=== PATIENT | male | born 1940 ===

== ENCOUNTER 2016-09-21 16:44 | Inpatient (IN) | payer MEDICARE, OTHER ==
[2016-09-26] MEDS: Insulin Lispro (humaLOG) 100 Units/ml Inj SC SCH (22:23)
[2016-09-27] MEDS: Pantoprazole 40 mg EC Tab PO SCH (06:52)
[2016-09-27] MEDS: Insulin Lispro (humaLOG) 100 Units/ml Inj SC SCH ×4 (06:53→21:00)
--- NOTE | 2016-09-27 08:06 | CP.PCM.CON ---
History of Present Illness - History of Present Illness History of Present Illness: 76 year old liberian male admitted for acute rehab with diagnosis of cerebrovascular accident from [facility]. Other diagnosis significant for Diabetes, HTN, Angina Review of Systems - Musculoskeletal Musculoskeletal: Muscle Weakness - Neurological Neurological: Weakness Past Patient History - Past Medical History & Family History Past Medical History?: Yes - Past Social History Smoking Status: Never Smoked - CARDIAC Hx Angina: Yes Hx Hypertension: Yes Other/Comment: (+) Loop recorder - NEUROLOGICAL Hx Paralysis: Yes - HEENT Hx Cataracts: Yes - ENDOCRINE/METABOLIC Hx Diabetes Mellitus Type 2: Yes - HEMATOLOGICAL/ONCOLOGICAL Hx AIDS: No Hx Human Immunodeficiency Virus (HIV): No - MUSCULOSKELETAL/RHEUMATOLOGICAL Hx Falls: Yes (Fell on 09/24/2016 @ [facility]) - PSYCHIATRIC Hx Substance Use: No - SURGICAL HISTORY Other/Comment: Cataract Sx 8 mos ago - ANESTHESIA Hx Anesthesia: Yes Hx Anesthesia Reactions: No Meds Allergies/Adverse Reactions: Allergies Allergy/AdvReac Type Severity Reaction Status Date / Time No Known Allergies Allergy Verified 09/26/16 19:05 - Medications Medications: Current Medications Acetaminophen (Tylenol 325mg Tab) 650 mg PO Q6 PRN PRN Reason: Headache Amlodipine Besylate (Norvasc) 5 mg PO DAILY [facility] Aspirin (Aspirin) 325 mg PO DAILY [facility] Atenolol (Tenormin) 50 mg PO Q12@0900,2100 [facility] Atorvastatin Calcium (Lipitor) 80 mg PO HS [facility] Last Admin: 09/26/16 22:22 Dose: 80 mg Insulin Human Lispro (Humalog) 0 units SC ACHS [facility] PRN Reason: Protocol Last Admin: 09/27/16 06:53 Dose: Not Given Lisinopril (Zestril) 20 mg PO DAILY [facility] Nitroglycerin (Nitrostat Sl Tab) 0.4 mg SL Q5M PRN PRN Reason: Other Pantoprazole Sodium (Protonix Ec Tab) 40 mg PO DAILY@0700 [facility] Last Admin: 09/27/16 06:52 Dose: 40 mg Physical Exam - Head Exam Head Exam: ATRAUMATIC, NORMAL INSPECTION, NORMOCEPHALIC - Eye Exam Eye Exam: EOMI, Normal appearance - ENT Exam ENT Exam: Mucous Membranes Moist, Normal Exam - Respiratory Exam Respiratory Exam: NORMAL BREATHING PATTERN - Cardiovascular Exam Cardiovascular Exam: REGULAR RHYTHM - GI/Abdominal Exam GI & Abdominal Exam: Normal Bowel Sounds - Exam External exam: NORMAL EXTERNAL EXAM - Back Exam Back exam: NORMAL INSPECTION Additional comments: left side weaker than right - Neurological Exam Neurological exam: Alert - Psychiatric Exam Psychiatric exam: Normal Affect, Normal Mood - Skin Skin Exam: Dry, Normal Color Results - Vital Signs Recent Vital Signs: Last Vital Signs Temp 97.5 F L 09/26/16 22:00 Pulse 61 09/27/16 00:40 Resp 20 09/27/16 00:40 BP 148/80 09/26/16 22:22 Pulse Ox 99 09/26/16 22:00 - Labs Labs: Laboratory Results - last 24 hr 09/26/16 09/27/16 22:21 06:14 POC Glucose (mg/dL) 105 121 H Assessment & Plan (1) Cerebrovascular accident Assessment and Plan: plan for physical, occupational, speech , recreational therapy program. Plan for Dc home Plan for ROM, strengthening, transfers and gait training. Goals for Modified [place] but depend on patient progress in rehabilitation. Other diagnosis of DM, HTN, Angina to follow with PMD and check labs. Status: Acute
--- NOTE | 2016-09-27 09:58 | CP.PCM.HP ---
History of Present Illness - History of Present Illness History of Present Illness: CC: Left sided Weakness and Left flank Pain History of present Illness: A 76yoM with H/O DMII, and HTN was in [facility] where he had stroke and was hospitalized for 4 days for Acute CVA 3weeks back . Then he went [facility] for Worsened Left sided weakness and slurred speech, and chest pain where he was found to have Acute CVA involving the avitia Radiata and Internal Capsule with weakness to the left side. While in the hospital, he was trying to come out of bed when he fell to the lefts side and injured the left Flank. All Imagings did not show any fracture as per the record and the patient. Currently still C/O Left sided weakness and left Flank pain 8-9/10 continuous and relieved by Tylenole. He passed Swallow evaluation done at [facility]. Present on Admission - Present on Admission Any Indicators Present on Admission: No History of DVT/PE: No History of Uncontrolled Diabetes: Yes Urinary Catheter: No Decubitus Ulcer Present: No Review of Systems - Review of Systems All systems: reviewed and no additional remarkable complaints except - Neurological Neurological: As Per HPI Past Patient History - Past Medical History & Family History Past Medical History?: Yes Past Family History: Reviewed and not pertinent - Past Social History Smoking Status: Never Smoked Alcohol: None Drugs: Denies - CARDIAC Hx Angina: Yes Hx Hypertension: Yes Other/Comment: (+) Loop recorder - NEUROLOGICAL Hx Paralysis: Yes - HEENT Hx Cataracts: Yes - ENDOCRINE/METABOLIC Hx Diabetes Mellitus Type 2: Yes - HEMATOLOGICAL/ONCOLOGICAL Hx AIDS: No Hx Human Immunodeficiency Virus (HIV): No - MUSCULOSKELETAL/RHEUMATOLOGICAL Hx Falls: Yes (Fell on 09/24/2016 @ [facility]) - PSYCHIATRIC Hx Substance Use: No - SURGICAL HISTORY Other/Comment: Cataract Sx 8 mos ago - ANESTHESIA Hx Anesthesia: Yes Hx Anesthesia Reactions: No Meds Allergies/Adverse Reactions: Allergies Allergy/AdvReac Type Severity Reaction Status Date / Time No Known Allergies Allergy Verified 09/26/16 19:05 Physical Exam - Constitutional Appears: Well, No Acute Distress - Head Exam Head Exam: ATRAUMATIC, NORMAL INSPECTION, NORMOCEPHALIC - Eye Exam Eye Exam: EOMI, Normal appearance, PERRL Pupil Exam: NORMAL ACCOMODATION, PERRL - ENT Exam ENT Exam: Mucous Membranes Moist, Normal Exam - Neck Exam Neck exam: Positive for: Full Rom, Normal Inspection - Respiratory Exam Respiratory Exam: Clear to Auscultation Bilateral, NORMAL BREATHING PATTERN - Cardiovascular Exam Cardiovascular Exam: REGULAR RHYTHM, +S1, +S2 - GI/Abdominal Exam GI & Abdominal Exam: Normal Bowel Sounds, Soft. absent: Tenderness - Extremities Exam Extremities exam: Positive for: full ROM, normal capillary refill, normal inspection - Back Exam Back exam: NORMAL INSPECTION. absent: CVA tenderness (L), CVA tenderness (R) - Neurological Exam Neurological exam: Alert, Motor Sensory Deficit, Oriented x3, Reflexes Normal - Psychiatric Exam Psychiatric exam: Normal Affect, Normal Mood - Skin Skin Exam: Dry, Intact, Normal Color, Warm Results - Vital Signs Recent Vital Signs: Last Vital Signs Temp 97.9 F 09/27/16 09:20 Pulse 60 09/27/16 09:20 Resp 19 09/27/16 09:20 BP 135/69 09/27/16 09:20 Pulse Ox 97 09/27/16 09:20 - Labs Result Diagrams: 10/05/16 12:05 10/05/16 12:05 Labs: Laboratory Results - last 24 hr 09/26/16 09/27/16 22:21 06:14 POC Glucose (mg/dL) 105 121 H - Imaging and Cardiology CT scan - head Status: Report reviewed by me Additional comment: Acute small infarct in the right 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 Assessment & Plan (1) Acute cerebrovascular accident (CVA) Assessment and Plan: Left sided Hemiplegia Fall, Left Flank Pain ASA/Lipitor Physiatry Consult Tylenol Fall Precaution Neurocheck Status: Acute Priority: High (2) Diabetes mellitus Assessment and Plan: with Novolog Coverage Status: Chronic Priority: Medium (3) Hypertension Assessment and Plan: Keep sbp about 50 and DB about 85 Status: Chronic Priority: Low (4) Fall Assessment and Plan: S/P Event Monitor insertion at [facility] Status: Acute
--- NOTE | 2016-09-27 10:44 | PN ---
DATE: 09/27/2016 OVERALL PLAN OF CARE The patient in room 627 at [facility]. The patient is a 76-year-old male admitted for acute cerebrovascular accident from Hospital. O ther medical history significant for hypertension, diabetes, angina. Estimated length of stay for th is patient is 2-3 weeks. Anticipated discharge plan is to go back to live at home with supportive se rvices. TREATMENT PLAN: The patient for physical therapy, occupational therapy, recreational therapy and spe ech therapy and case management. Plan for the patient is for range of motion, strengthening, transfe rs, ambulation, gait training, speech evaluation, cognitive evaluation. Goals for the patient to be independent in bed mobility, independence of supervision, functional positional changes, independence of supervision for simple transfers, supervision and contact guard for complex transfers, independen ce of supervision for ambulation with assistive devices, supervision and contact guard for elevation. Condition fair. DISCHARGE DISPOSITION: To be discharged home with supportive services. Clifford Gonsales MD cc: [id number] TT: 09/27/2016 10:43:50 Confirmation # [id number] Dictation # [id number] an
--- NOTE | 2016-09-27 13:20 | CP.PCM.CON ---
History of Present Illness - History of Present Illness History of Present Illness: I was asked to see patient by Dr. Woods. Patient is a 76 year old male with a history of HTN, hypercholesterolemia who presents for rehab. The patient presented to [facility] due and left sided weakness. The patietn has CV of the avitia radiata. He has normal cardiac care with Dr. Alexi Davis. The patient denies previous history of CAD or atrial fibrillation. Review of Systems - Constitutional Constitutional: absent: As Per HPI, Anorexia, Chills, Daytime Sleepiness, Excessive Sweating, Fatigue, Fever, Frequent Falls, Headache, Increased Appetite , Lethargy, Malaise, Night Sweats, Snoring, Sleep Apnea, Weight Gain, Weight Loss, Weakness, Other - EENT Eyes: absent: As Per HPI, Blind Spots, Blurred Vision, Change in Vision, Decreased Night Vision, Diplopia, Discharge, Dry Eye, Exophthalmos, Floaters, Irritation, Itchy Eyes, Loss of Peripheral Vision, Pain, Photophobia, Requires Corrective Lenses, Sees Flashes, Spots in Vision, Tunnel Vision, Other Visual Disturbances, Loss of Vision, Other Ears: absent: As Per HPI, Decreased Hearing, Ear Discharge, Ear Pain, Tinnitus, Abnormal Hearing, Disequilibrium, Dizziness, Other Nose/Mouth/Throat: absent: As Per HPI, Epistaxis, Nasal Congestion, Nasal Discharge, Nasal Obstruction, Nasal Trauma, Nose Pain, Post Nasal Drip, Sinus Pain, Sinus Pressure, Bleeding Gums, Change in Voice, Dental Pain, Dry Mouth, Dysphagia, Halitosis, Hoarsness, Lip Swelling, Mouth Lesions, Mouth Pain, Odynophagia, Sore Throat, Throat Swelling, Tongue Swelling, Facial Pain, Neck Pain, Neck Mass, Other - Cardiovascular Cardiovascular: absent: As Per HPI, Acrocyanosis, Chest Pain, Chest Pain at Rest , Chest Pain with Activity, Claudication, Diaphoresis, Dyspnea, Dyspnea on Exertion, Edema, Irregular Heart Rhythm, Pain Radiating to Arm/Neck/Jaw, Leg Edema, Leg Ulcers, Lightheadedness, Orthopnea, Palpitations, Paroxysmal Nocturnal Dyspnea, Pedal Edema, Radiating Pain, Rapid Heart Rate, Slow Heart Rate, Syncope, Other - Respiratory Respiratory: absent: As Per HPI, Cough, Dyspnea, Hemoptysis, Dyspnea on Exertion , Wheezing, Snoring, Stridor, Pain on Inspiration, Chest Congestion, Excessive Mucous Production, Change in Mucous Color, Pain with Coughing, Other - Gastrointestinal Gastrointestinal: absent: As Per HPI, Abdominal Pain, Belching, Bloating, Change in Bowel Habits, Change in Stool Character, Coffee Ground Emesis, Constipation, Cramping, Diarrhea, Dyspepsia, Dysphagia, Early Satiety, Excessive Flatus, Fecal Incontinence, Heartburn, Hematemesis, Hematochezia, Loose Stools, Melena, Nausea, Odynophagia, Temesmus, Vomiting, Other - Genitourinary Genitourinary: absent: As Per HPI, Change in Urinary Stream, Difficulty Urinating, Dysuria, Flank Pain, Hematuria, Pyuria, Nocturia, Urinary Incontinence, Urinary Frequency, Urinary Hesitance, Urinary Urgency, Voiding Freq/Small Amts, Freq UTI, Hx Renal/Bladder Calculi, Hx /Renal Surgery, Bladder Distension, Other - Musculoskeletal Musculoskeletal: absent: As Per HPI, Abnormal Gait, Arthralgias, Atrophy, Back Pain, Deformity, Joint Swelling, Limited Range of Motion, Loss of Height, Muscle Cramps, Muscle Weakness, Myalgias, Neck Pain, Numbness, Radiating Pain into Limb, Stiffness, Tingling, Other - Integumentary Integumentary: absent: As Per HPI, Acne, Alopecia, Bleeding Lesions, Change in Hair, Change in Nails, Change in Pigmentation, Changing Lesions, Dry Skin, Erythema, Furuncle, Hirsutism, Lesions, New Lesions, Non-Healing Lesions, Photosensitivity, Pruritus, Rash, Skin Pain, Skin Ulcer, Sores, Striae, Swelling , Unusual Bruising, Wounds, Jaundice, Other - Neurological Neurological: Weakness - Psychiatric Psychiatric: absent: As Per HPI, Abnormal Sleep Pattern, Anhedonia, Anxiety, Auditory Hallucinations, Behavioral Changes, Change in Appetite, Change in Libido, Confusion, Depression, Difficulty Concentrating, Hallucinations, Homicidal Ideation, Hopelessness, Irritability, Memory Loss, Mood Swings, Panic Attacks, Paranoia, Suicidal Ideation, Visual Hallucinations, Tactile Hallucinations, Other - Endocrine Endocrine: absent: As Per HPI, Change in Body Appearance, Change in Libido, Cold Intolorance, Deepening of Voice, Excessive Sweating, Fatigue, Flushing, Heat Intolorance, Increase in Ring/Shoe/Hat Size, Palpitations, Polydipsia, Polyphagia, Polyuria, Other - Hematologic/Lymphatic Hematologic: absent: As Per HPI, Easy Bleeding, Easy Bruising, Lymphadenopathy, Other Past Patient History - Past Medical History & Family History Past Medical History?: Yes Past Family History: Reviewed and not pertinent - Past Social History Smoking Status: Never Smoked Alcohol: None Drugs: Denies - CARDIAC Hx Angina: Yes Hx Hypertension: Yes Other/Comment: (+) Loop recorder - NEUROLOGICAL Hx Paralysis: Yes - HEENT Hx Cataracts: Yes - ENDOCRINE/METABOLIC Hx Diabetes Mellitus Type 2: Yes - HEMATOLOGICAL/ONCOLOGICAL Hx AIDS: No Hx Human Immunodeficiency Virus (HIV): No - MUSCULOSKELETAL/RHEUMATOLOGICAL Hx Falls: Yes (Fell on 09/24/2016 @ [facility]) - PSYCHIATRIC Hx Substance Use: No - SURGICAL HISTORY Other/Comment: Cataract Sx 8 mos ago - ANESTHESIA Hx Anesthesia: Yes Hx Anesthesia Reactions: No Meds Allergies/Adverse Reactions: Allergies Allergy/AdvReac Type Severity Reaction Status Date / Time No Known Allergies Allergy Verified 09/26/16 19:05 - Medications Medications: Current Medications Acetaminophen (Tylenol 325mg Tab) 650 mg PO Q6 PRN PRN Reason: Headache Last Admin: 09/27/16 09:19 Dose: 650 mg Acetaminophen (Tylenol 325mg Tab) 650 mg PO Q6 PRN PRN Reason: Pain scale 4-10 Amlodipine Besylate (Norvasc) 5 mg PO DAILY [facility] Last Admin: 09/27/16 09:17 Dose: Not Given Aspirin (Aspirin) 325 mg PO DAILY [facility] Last Admin: 09/27/16 09:16 Dose: 325 mg Atenolol (Tenormin) 50 mg PO Q12@0900,2100 [facility] Last Admin: 09/27/16 09:18 Dose: Not Given Atorvastatin Calcium (Lipitor) 80 mg PO HS [facility] Last Admin: 09/26/16 22:22 Dose: 80 mg Insulin Human Lispro (Humalog) 0 units SC ACHS [facility] PRN Reason: Protocol Last Admin: 09/27/16 12:11 Dose: Not Given Lisinopril (Zestril) 20 mg PO DAILY [facility] Last Admin: 09/27/16 09:18 Dose: Not Given Nitroglycerin (Nitrostat Sl Tab) 0.4 mg SL Q5M PRN PRN Reason: Other Pantoprazole Sodium (Protonix Ec Tab) 40 mg PO DAILY@0700 [facility] Last Admin: 09/27/16 06:52 Dose: 40 mg Physical Exam - Constitutional Appears: Non-toxic - Head Exam Head Exam: NORMAL INSPECTION - Eye Exam Eye Exam: Normal appearance - ENT Exam ENT Exam: Mucous Membranes Moist - Neck Exam Neck exam: Positive for: Full Rom - Respiratory Exam Respiratory Exam: NORMAL BREATHING PATTERN - Cardiovascular Exam Cardiovascular Exam: REGULAR RHYTHM - GI/Abdominal Exam GI & Abdominal Exam: Normal Bowel Sounds - Rectal Exam Rectal Exam: Deferred - Extremities Exam Extremities exam: Negative for: pedal edema - Back Exam Back exam: NORMAL INSPECTION - Neurological Exam Additional comments: left sided weakness - Psychiatric Exam Psychiatric exam: Normal Affect - Skin Skin Exam: Normal Color Results - Vital Signs Recent Vital Signs: Last Vital Signs Temp 97.9 F 09/27/16 09:20 Pulse 60 09/27/16 09:20 Resp 19 09/27/16 09:20 BP 135/69 09/27/16 09:20 Pulse Ox 97 09/27/16 09:20 - Labs Labs: Laboratory Results - last 24 hr 09/26/16 09/27/16 09/27/16 22:21 06:14 12:05 POC Glucose (mg/dL) 105 121 H 128 H Assessment & Plan (1) Cerebrovascular accident Assessment and Plan: continue rehab. needs antiplatelet therapy Status: Acute (2) Diabetes mellitus Assessment and Plan: risk factors for CVA Status: Chronic Priority: Medium (3) Hypertension Assessment and Plan: blood pressure control Status: Chronic Priority: Low (4) Hypercholesterolemia Assessment and Plan: statin therapy Status: Acute
[2016-09-28] MEDS ORDERED: guaiFENesin 100 mg/5 ml Syrup UD PO ONE (01:44)
[2016-09-28] MEDS: Insulin Lispro (humaLOG) 100 Units/ml Inj SC SCH ×4 (06:30→21:05)
[2016-09-28] MEDS: Pantoprazole 40 mg EC Tab PO SCH (06:56)
[2016-09-28] MEDS ORDERED: guaiFENesin 100 mg/5 ml Syrup UD PO PRN (12:40)
--- NOTE | 2016-09-28 15:13 | CP.PCM.CON ---
History of Present Illness - History of Present Illness History of Present Illness: PODIATRY PROGRESS NOTE DR. GOMEZ 76 yo male patient w/ pmh DMII, HTN, angina seen at bedside in rehab today following request for podiatry consult. Of note patient is here for acute rehab following recent CVA from [place]. Pt says he has weakness to the left side, unable to walk at this time. Says his toenails are elongated and need to be cut. Denies any other pedal complaints. Review of Systems - Review of Systems Review of Systems: All systems reviewed and found to be negative except HPI findings above Past Patient History - Past Medical History & Family History Past Medical History?: Yes Past Family History: Reviewed and not pertinent - Past Social History Smoking Status: Never Smoked Alcohol: None Drugs: Denies - CARDIAC Hx Hypertension: Yes - NEUROLOGICAL Hx Paralysis: Yes - HEENT Hx Cataracts: Yes - ENDOCRINE/METABOLIC Hx Diabetes Mellitus Type 2: Yes - HEMATOLOGICAL/ONCOLOGICAL Hx AIDS: No Hx Human Immunodeficiency Virus (HIV): No - MUSCULOSKELETAL/RHEUMATOLOGICAL Hx Falls: Yes (Fell on 09/24/2016 @ [facility]) - PSYCHIATRIC Hx Substance Use: No - SURGICAL HISTORY Other/Comment: Cataract Sx 8 mos ago - ANESTHESIA Hx Anesthesia: Yes Hx Anesthesia Reactions: No Meds Allergies/Adverse Reactions: Allergies Allergy/AdvReac Type Severity Reaction Status Date / Time No Known Allergies Allergy Verified 09/26/16 19:05 - Medications Medications: Current Medications Acetaminophen (Tylenol 325mg Tab) 650 mg PO Q6 PRN PRN Reason: Headache Last Admin: 09/27/16 09:19 Dose: 650 mg Acetaminophen (Tylenol 325mg Tab) 650 mg PO Q6 PRN PRN Reason: Pain scale 4-10 Last Admin: 09/27/16 21:24 Dose: 650 mg Amlodipine Besylate (Norvasc) 5 mg PO DAILY [facility] Last Admin: 09/28/16 08:55 Dose: Not Given Aspirin (Aspirin) 325 mg PO DAILY [facility] Last Admin: 09/28/16 08:55 Dose: 325 mg Atenolol (Tenormin) 50 mg PO Q12@0900,2100 [facility] Last Admin: 09/28/16 08:56 Dose: Not Given Atorvastatin Calcium (Lipitor) 80 mg PO HS [facility] Last Admin: 09/27/16 21:15 Dose: 80 mg Docusate Sodium (Colace) 100 mg PO BID [facility] Guaifenesin (Robitussin) 100 mg PO Q4 PRN PRN Reason: Cough Insulin Human Lispro (Humalog) 0 units SC ACHS [facility] PRN Reason: Protocol Last Admin: 09/28/16 12:18 Dose: 3 unit Lisinopril (Zestril) 20 mg PO DAILY [facility] Last Admin: 09/28/16 08:56 Dose: Not Given Nitroglycerin (Nitrostat Sl Tab) 0.4 mg SL Q5M PRN PRN Reason: Other Pantoprazole Sodium (Protonix Ec Tab) 40 mg PO DAILY@0700 [facility] Last Admin: 09/28/16 06:56 Dose: 40 mg Physical Exam - Constitutional Appears: Non-toxic, No Acute Distress - Extremities Exam Extremities exam: Negative for: calf tenderness Additional comments: Bilateral lower ext. exam: VASC- DP/PT pulses palpable bl, skin temp runs warm to cool bl, cap refill < 3 sec to digits x 10, no pedal edema NEURO- gross pedal sensation is intact DERM- nails slightly elongated x 10, no subungual debris, no open wounds, no interdigital macerations ORTHO- pedal muscle strength 5/5 right, 2/5 on left, no tenderness to palpation of feet - Neurological Exam Neurological exam: Alert, CN II-XII Intact, Oriented x3 - Psychiatric Exam Psychiatric exam: Normal Affect, Normal Mood Results - Vital Signs Recent Vital Signs: Last Vital Signs Temp 97.3 F L 09/28/16 07:24 Pulse 56 L 09/28/16 08:56 Resp 18 09/28/16 07:24 BP 146/74 09/28/16 08:56 Pulse Ox 99 09/28/16 07:24 - Labs Labs: Laboratory Results - last 24 hr 09/27/16 09/27/16 09/28/16 16:37 20:40 05:31 POC Glucose (mg/dL) 148 H 140 H 128 H 09/28/16 11:10 POC Glucose (mg/dL) 267 H Assessment & Plan - Assessment and Plan (Free Text) Assessment: 76 yo male patient w/ pmh DM, HTN, hypercholesterolemia, recent CVA seen for diabetic foot eval/elongated nails Plan: -Pt S&E at bedside in rehab -Plan discussed w/ attending Dr. Gomez -Chart, labs vitals reviewed -Nails aseptically debrided x 10 w/ sterile nail nipper. Pt tolerated procedure well w/o incident -Educated pt on proper diabetic foot care. -Stable per podiatry. -Podiatry to sing off. Reconsult as needed
--- NOTE | 2016-09-28 23:21 | CP.PCM.CON ---
History of Present Illness - History of Present Illness History of Present Illness: CC: Left sided Weakness and Left flank Pain History of present Illness: A 76yoM with H/O DMII, and HTN was in [facility] where he had stroke and was hospitalized for 4 days for Acute CVA 3weeks back . Then he went pallisade for Worsened Left sided weakness and slurred speech, and chest pain where he was found to have Acute CVA involving the avitia Radiata and Internal Capsule with weakness to the left side. While in the hospital, he was trying to come out of bed when he fell to the lefts side and injured the left Flank. All Imagings did not show any fracture as per the record and the patient. Currently still C/O Left sided weakness and left Flank pain 8-9/10 continuous and relieved by Tylenole. He passed Sw[place] Present on Admission - Present on Admission Any Indicators Present on Admission: No History of DVT/PE: No History of Uncontrolled Diabetes: Yes Urinary Catheter: No Decubitus Ulcer Present: No Review of Systems - Review of Systems All systems: reviewed and no additional remarkable complaints except - Neurological Neurological: As Per HPI Past Patient History - Past Medical History & Family History Past Medical History?: Yes Past Family History: Reviewed and not pertinent - Past Social History Smoking Status: Never Smoked Alcohol: None Drugs: Denies - CARDIAC Hx Angina: Yes Hx Hypertension: Yes Other/Comment: (+) Loop recorder - NEUROLOGICAL Hx Paralysis: Yes - HEENT Hx Cataracts: Yes - ENDOCRINE/METABOLIC Hx Diabetes Mellitus Type 2: Yes - HEMATOLOGICAL/ONCOLOGICAL Hx AIDS: No Hx Human Immunodeficiency Virus (HIV): No - MUSCULOSKELETAL/RHEUMATOLOGICAL Hx Falls: Yes (Fell on 09/24/2016 @ [facility]) - PSYCHIATRIC Hx Substance Use: No - SURGICAL HISTORY Other/Comment: Cataract Sx 8 mos ago - ANESTHESIA Hx Anesthesia: Yes Hx Anesthesia Reactions: No Meds Allergies/Adverse Reactions: Allergies Allergy/AdvReac Type Severity Reaction Status Date / Time No Known Allergies Allergy Verified 09/26/16 19:05 Physical Exam - Constitutional Appears: Well, No Acute Distress - Head Exam Head Exam: ATRAUMATIC, NORMAL INSPECTION, NORMOCEPHALIC - Eye Exam Eye Exam: EOMI, Normal appearance, PERRL Pupil Exam: NORMAL ACCOMODATION, PERRL - ENT Exam ENT Exam: Mucous Membranes Moist, Normal Exam - Neck Exam Neck exam: Positive for: Full Rom, Normal Inspection - Respiratory Exam Respiratory Exam: Clear to Auscultation Bilateral, NORMAL BREATHING PATTERN - Cardiovascular Exam Cardiovascular Exam: REGULAR RHYTHM, +S1, +S2 - GI/Abdominal Exam GI & Abdominal Exam: Normal Bowel Sounds, Soft. absent: Tenderness - Extremities Exam Extremities exam: Positive for: full ROM, normal capillary refill, normal inspection - Back Exam Back exam: NORMAL INSPECTION. absent: CVA tenderness (L), CVA tenderness (R) - Neurological Exam Neurological exam: Alert, Motor Sensory Deficit, Oriented x3, Reflexes Normal - Psychiatric Exam Psychiatric exam: Normal Affect, Normal Mood - Skin Skin Exam: Dry, Intact, Normal Color, Warm Results - Vital Signs Recent Vital Signs: Last Vital Signs Temp 97.9 F 09/27/16 09:20 Pulse 60 09/27/16 09:20 Resp 19 09/27/16 09:20 BP 135/69 09/27/16 09:20 Pulse Ox 97 09/27/16 09:20 - Labs Labs: Laboratory Results - last 24 hr 09/26/16 09/27/16 22:21 06:14 POC Glucose (mg/dL) 105 121 H - Imaging and Cardiology CT scan - head Status: Report reviewed by me Additional comment: Acute small infarct in the right 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 Assessment & Plan (1) Acute cerebrovascular accident (CVA) Assessment and Plan: Left sided Hemiplegia Fall, Left Flank Pain ASA/Lipitor Physiatry Consult Tylenol Fall Precaution Neurocheck Status: Acute Priority: High (2) Diabetes mellitus Assessment and Plan: with Novolog Coverage Status: Chronic Priority: Medium (3) Hypertension Assessment and Plan: Keep sbp about 50 and DB about 85 Status: Chronic Priority: Low (4) Fall Status: Acute Past Patient History - Past Medical History & Family History Past Medical History?: Yes Past Family History: Reviewed and not pertinent - Past Social History Smoking Status: Never Smoked Alcohol: None Drugs: Denies - CARDIAC Hx Hypertension: Yes - NEUROLOGICAL Hx Paralysis: Yes - HEENT Hx Cataracts: Yes - ENDOCRINE/METABOLIC Hx Diabetes Mellitus Type 2: Yes - HEMATOLOGICAL/ONCOLOGICAL Hx AIDS: No Hx Human Immunodeficiency Virus (HIV): No - MUSCULOSKELETAL/RHEUMATOLOGICAL Hx Falls: Yes (Fell on 09/24/2016 @ [facility]) - PSYCHIATRIC Hx Substance Use: No - SURGICAL HISTORY Other/Comment: Cataract Sx 8 mos ago - ANESTHESIA Hx Anesthesia: Yes Hx Anesthesia Reactions: No Meds Allergies/Adverse Reactions: Allergies Allergy/AdvReac Type Severity Reaction Status Date / Time No Known Allergies Allergy Verified 09/26/16 19:05 - Medications Medications: Current Medications Acetaminophen (Tylenol 325mg Tab) 650 mg PO Q6 PRN PRN Reason: Headache Last Admin: 09/27/16 09:19 Dose: 650 mg Acetaminophen (Tylenol 325mg Tab) 650 mg PO Q6 PRN PRN Reason: Pain scale 4-10 Last Admin: 09/27/16 21:24 Dose: 650 mg Amlodipine Besylate (Norvasc) 5 mg PO DAILY [facility] Last Admin: 09/28/16 08:55 Dose: Not Given Aspirin (Aspirin) 325 mg PO DAILY [facility] Last Admin: 09/28/16 08:55 Dose: 325 mg Atenolol (Tenormin) 50 mg PO Q12@0900,2100 [facility] Last Admin: 09/28/16 20:28 Dose: 50 mg Atorvastatin Calcium (Lipitor) 80 mg PO HS [facility] Last Admin: 09/28/16 21:08 Dose: 80 mg Docusate Sodium (Colace) 100 mg PO BID [facility] Last Admin: 09/28/16 17:16 Dose: 100 mg Guaifenesin (Robitussin) 100 mg PO Q4 PRN PRN Reason: Cough Last Admin: 09/28/16 20:29 Dose: 100 mg Insulin Human Lispro (Humalog) [address] [facility] PRN Reason: Protocol Last Admin: 09/28/16 21:05 Dose: Not Given Lisinopril (Zestril) 20 mg PO DAILY [facility] Last Admin: 09/28/16 08:56 Dose: Not Given Nitroglycerin (Nitrostat Sl Tab) 0.4 mg SL Q5M PRN PRN Reason: Other Pantoprazole Sodium (Protonix Ec Tab) 40 mg PO DAILY@0700 [facility] Last Admin: 09/28/16 06:56 Dose: 40 mg Physical Exam - Neurological Exam Additional comments: Mental Status: Awake, Alert, Oriented X 3 Dysarthric, non fluent non coherent Normal memory X 3 Cranial Nerves II to XII: Central Tongue Normal EOM Normal Swallowing Motor: Left Hemiplegia, spastic Tone on the Left UE , mild LE Weakness of the Left UE and mild weakness of Left LE DTR 0/4 Toes down going on the Right and Up Going on the Left. Sensory: Glove and Stoke sensory Deficit peripherally More Reduced sensation on the Left side Cerebellar: Normal FNT on the Right. Results - Vital Signs Recent Vital Signs: Last Vital Signs Temp 97.7 F 09/28/16 20:37 Pulse 64 09/28/16 20:37 Resp 20 09/28/16 20:37 BP 162/78 H 09/28/16 20:37 Pulse Ox 99 09/28/16 20:37 - Labs Labs: Laboratory Results - last 24 hr 09/28/16 09/28/16 09/28/16 05:31 11:10 15:57 POC Glucose (mg/dL) 128 H 267 H 200 H 09/28/16 21:04 POC Glucose (mg/dL) 136 H Assessment & Plan (1) Acute cerebrovascular accident (CVA) Status: Acute Priority: High (2) Cerebrovascular accident Status: Acute (3) Fall Status: Acute (4) Hypercholesterolemia Status: Acute (5) Diabetes mellitus Status: Chronic Priority: Medium (6) Hypertension Status: Chronic Priority: Low (7) Seizures Assessment and Plan: due to his falling, seizures is to be ruled out by EEG Status: Acute
--- NOTE | 2016-09-28 23:24 | CP.PCM.PN ---
Subjective - Date & Time of Evaluation Date of Evaluation: 09/28/16 Time of Evaluation: 15:15 - Subjective Subjective: Seen and Examined at the bed side. Left shoulder pain. Left sided weakness. Objective - Vital Signs/Intake and Output Vital Signs (last 24 hours): Temp Pulse Resp BP Pulse Ox 97.7 F 64 20 162/78 H 99 09/28/16 20:37 09/28/16 20:37 09/28/16 20:37 09/28/16 20:37 09/28/16 20:37 - Medications Medications: Current Medications Acetaminophen (Tylenol 325mg Tab) 650 mg PO Q6 PRN PRN Reason: Headache Last Admin: 09/27/16 09:19 Dose: 650 mg Acetaminophen (Tylenol 325mg Tab) 650 mg PO Q6 PRN PRN Reason: Pain scale 4-10 Last Admin: 09/27/16 21:24 Dose: 650 mg Amlodipine Besylate (Norvasc) 5 mg PO DAILY [facility] Last Admin: 09/28/16 08:55 Dose: Not Given Aspirin (Aspirin) 325 mg PO DAILY [facility] Last Admin: 09/28/16 08:55 Dose: 325 mg Atenolol (Tenormin) 50 mg PO Q12@0900,2100 [facility] Last Admin: 09/28/16 20:28 Dose: 50 mg Atorvastatin Calcium (Lipitor) 80 mg PO HS [facility] Last Admin: 09/28/16 21:08 Dose: 80 mg Docusate Sodium (Colace) 100 mg PO BID [facility] Last Admin: 09/28/16 17:16 Dose: 100 mg Guaifenesin (Robitussin) 100 mg PO Q4 PRN PRN Reason: Cough Last Admin: 09/28/16 20:29 Dose: 100 mg Insulin Human Lispro (Humalog) 0 units SC ACHS [facility] PRN Reason: Protocol Last Admin: 09/28/16 21:05 Dose: Not Given Lisinopril (Zestril) 20 mg PO DAILY [facility] Last Admin: 09/28/16 08:56 Dose: Not Given Nitroglycerin (Nitrostat Sl Tab) 0.4 mg SL Q5M PRN PRN Reason: Other Pantoprazole Sodium (Protonix Ec Tab) 40 mg PO DAILY@0700 [facility] Last Admin: 09/28/16 06:56 Dose: 40 mg - Constitutional Appears: Well, No Acute Distress - Head Exam Head Exam: ATRAUMATIC, NORMAL INSPECTION, NORMOCEPHALIC - Eye Exam Eye Exam: EOMI, Normal appearance, PERRL Pupil Exam: NORMAL ACCOMODATION, PERRL - ENT Exam ENT Exam: Mucous Membranes Moist, Normal Exam - Neck Exam Neck Exam: Full ROM, Normal Inspection. absent: Lymphadenopathy - Respiratory Exam Respiratory Exam: Clear to Ausculation Bilateral, NORMAL BREATHING PATTERN - Cardiovascular Exam Cardiovascular Exam: REGULAR RHYTHM, +S1, +S2. absent: Murmur - GI/Abdominal Exam GI & Abdominal Exam: Soft, Normal Bowel Sounds. absent: Tenderness - Extremities Exam Extremities Exam: Full ROM, Normal Capillary Refill, Tenderness. absent: Joint Swelling, Pedal Edema Additional comments: Left Shoulder Tenderness - Back Exam Back Exam: NORMAL INSPECTION - Neurological Exam Neurological Exam: Abnormal Gait, Alert, Awake, CN II-XII Intact, Oriented x3 Neuro motor strength exam: Left Upper Extremity: 2/1, Right Upper Extremity: 5, Left Lower Extremity: 2/1, Right Lower Extremity: 5 - Psychiatric Exam Psychiatric exam: Normal Affect, Normal Mood - Skin Skin Exam: Dry, Intact, Normal Color, Warm Assessment and Plan (1) Acute cerebrovascular accident (CVA) Assessment & Plan: Left sided Hemiplegia Fall, Left Flank Pain ASA/Lipitor Physiatry Consult Tylenol Fall Precaution Neurocheck Status: Acute Priority: High (2) Diabetes mellitus Assessment and Plan: SS with Novolog Coverage Status: Chronic Priority: Medium (3) Hypertension Assessment and Plan: Keep sbp about 50 and DB about 85 Status: Chronic Priority: Low (4) Fall Assessment and Plan: S/P Event Monitor insertion at [facility] Status: Acute
[2016-09-29] MEDS: Pantoprazole 40 mg EC Tab PO SCH (06:00)
[2016-09-29] MEDS: Insulin Lispro (humaLOG) 100 Units/ml Inj SC SCH ×4 (07:30→21:41)
--- NOTE | 2016-09-29 09:13 | RAD ---
PROCEDURE: Radiographs of the Left Shoulder HISTORY: left shoulder pain COMPARISON: No prior. FINDINGS: BONES: Normal. No fracture. JOINTS: Normal. Glenohumeral and acromioclavicular joints preserved. No osteoarthritis. SOFT TISSUES: Normal. OTHER FINDINGS: None. IMPRESSION: No evidence of acute fracture or dislocation.
--- NOTE | 2016-09-29 10:39 | CP.PCM.PN ---
Subjective - Date & Time of Evaluation Date of Evaluation: 09/29/16 Time of Evaluation: 10:50 - Subjective Subjective: Seen and Examined at the bed side.No New Complaint. Objective - Vital Signs/Intake and Output Vital Signs (last 24 hours): Temp Pulse Resp BP Pulse Ox 97.0 F L 59 L 19 112/55 L 99 09/29/16 08:56 09/29/16 08:56 09/29/16 08:56 09/29/16 08:56 09/29/16 08:56 - Medications Medications: Current Medications Acetaminophen (Tylenol 325mg Tab) 650 mg PO Q6 PRN PRN Reason: Headache Last Admin: 09/27/16 09:19 Dose: 650 mg Acetaminophen (Tylenol 325mg Tab) 650 mg PO Q6 PRN PRN Reason: Pain scale 4-10 Last Admin: 09/27/16 21:24 Dose: 650 mg Amlodipine Besylate (Norvasc) 5 mg PO DAILY [facility] Last Admin: 09/29/16 08:50 Dose: Not Given Aspirin (Aspirin) 325 mg PO DAILY [facility] Last Admin: 09/29/16 08:49 Dose: 325 mg Atenolol (Tenormin) 50 mg PO Q12@0900,2100 [facility] Last Admin: 09/29/16 08:50 Dose: Not Given Atorvastatin Calcium (Lipitor) 80 mg PO HS [facility] Last Admin: 09/28/16 21:08 Dose: 80 mg Docusate Sodium (Colace) 100 mg PO BID [facility] Last Admin: 09/29/16 08:49 Dose: 100 mg Guaifenesin (Robitussin) 100 mg PO Q4 PRN PRN Reason: Cough Last Admin: 09/28/16 20:29 Dose: 100 mg Insulin Human Lispro (Humalog) 0 units SC ACHS [facility] PRN Reason: Protocol Last Admin: 09/29/16 07:30 Dose: Not Given Lisinopril (Zestril) 20 mg PO DAILY [facility] Last Admin: 09/29/16 08:50 Dose: Not Given Nitroglycerin (Nitrostat Sl Tab) 0.4 mg SL Q5M PRN PRN Reason: Other Pantoprazole Sodium (Protonix Ec Tab) 40 mg PO DAILY@0700 [facility] Last Admin: 09/29/16 06:00 Dose: 40 mg - Constitutional Appears: Well, No Acute Distress - Head Exam Head Exam: ATRAUMATIC, NORMAL INSPECTION, NORMOCEPHALIC - Eye Exam Eye Exam: EOMI, Normal appearance, PERRL Pupil Exam: NORMAL ACCOMODATION, PERRL - ENT Exam ENT Exam: Mucous Membranes Moist, Normal Exam - Neck Exam Neck Exam: Full ROM, Normal Inspection. absent: Lymphadenopathy - Respiratory Exam Respiratory Exam: Clear to Ausculation Bilateral, NORMAL BREATHING PATTERN - Cardiovascular Exam Cardiovascular Exam: REGULAR RHYTHM, +S1, +S2. absent: Murmur - GI/Abdominal Exam GI & Abdominal Exam: Soft, Normal Bowel Sounds. absent: Tenderness - Extremities Exam Extremities Exam: Full ROM, Normal Capillary Refill, Normal Inspection. absent : Joint Swelling, Pedal Edema - Back Exam Back Exam: NORMAL INSPECTION - Neurological Exam Neurological Exam: Alert, Awake, CN II-XII Intact, Normal Gait, Oriented x3 Neuro motor strength exam: Left Upper Extremity: 3, Left Lower Extremity: 3 - Psychiatric Exam Psychiatric exam: Normal Affect, Normal Mood - Skin Skin Exam: Dry, Intact, Normal Color, Warm Assessment and Plan (1) Acute cerebrovascular accident (CVA) Assessment & Plan: Left sided Hemiplegia Fall, Left Flank Pain ASA/Lipitor Physiatry onboard Tylenol Fall Precaution Neurocheck Status: Acute Priority: High (2) Diabetes mellitus Assessment and Plan: SS with Novolog Coverage Status: Chronic Priority: Medium (3) Hypertension Assessment and Plan: Keep sbp about 150 and DB about 85 Status: Chronic Priority: Low (4) Fall Assessment and Plan: S/P Event Monitor insertion at [facility] Status: Acute
--- NOTE | 2016-09-29 13:58 | CP.PCM.PN ---
Subjective - Date & Time of Evaluation Date of Evaluation: 09/29/16 Time of Evaluation: 12:00 - Subjective Subjective: patinet with mild left sided weakness Objective - Vital Signs/Intake and Output Vital Signs (last 24 hours): Temp Pulse Resp BP Pulse Ox 97.0 F L 59 L 19 112/55 L 99 09/29/16 08:56 09/29/16 08:56 09/29/16 08:56 09/29/16 08:56 09/29/16 08:56 - Medications Medications: Current Medications Acetaminophen (Tylenol 325mg Tab) 650 mg PO Q6 PRN PRN Reason: Headache Last Admin: 09/27/16 09:19 Dose: 650 mg Acetaminophen (Tylenol 325mg Tab) 650 mg PO Q6 PRN PRN Reason: Pain scale 4-10 Last Admin: 09/27/16 21:24 Dose: 650 mg Amlodipine Besylate (Norvasc) 5 mg PO DAILY [facility] Last Admin: 09/29/16 08:50 Dose: Not Given Aspirin (Aspirin) 325 mg PO DAILY [facility] Last Admin: 09/29/16 08:49 Dose: 325 mg Atenolol (Tenormin) 50 mg PO Q12@0900,2100 [facility] Last Admin: 09/29/16 08:50 Dose: Not Given Atorvastatin Calcium (Lipitor) 80 mg PO HS [facility] Last Admin: 09/28/16 21:08 Dose: 80 mg Docusate Sodium (Colace) 100 mg PO BID [facility] Last Admin: 09/29/16 08:49 Dose: 100 mg Guaifenesin (Robitussin) 100 mg PO Q4 PRN PRN Reason: Cough Last Admin: 09/28/16 20:29 Dose: 100 mg Insulin Human Lispro (Humalog) 0 units SC [facility] PRN Reason: Protocol Last Admin: 09/29/16 12:25 Dose: 1 unit Lisinopril (Zestril) 20 mg PO DAILY [facility] Last Admin: 09/29/16 08:50 Dose: Not Given Nitroglycerin (Nitrostat Sl Tab) 0.4 mg SL Q5M PRN PRN Reason: Other Pantoprazole Sodium (Protonix Ec Tab) 40 mg PO DAILY@0700 [facility] Last Admin: 09/29/16 06:00 Dose: 40 mg - Head Exam Head Exam: ATRAUMATIC, NORMAL INSPECTION, NORMOCEPHALIC - Eye Exam Eye Exam: EOMI, Normal appearance, PERRL Pupil Exam: NORMAL ACCOMODATION - ENT Exam ENT Exam: Mucous Membranes Moist, Normal Exam - Respiratory Exam Respiratory Exam: NORMAL BREATHING PATTERN - Cardiovascular Exam Cardiovascular Exam: REGULAR RHYTHM - GI/Abdominal Exam GI & Abdominal Exam: Normal Bowel Sounds - Rectal Exam Rectal Exam: Black Stool - Exam External exam: NORMAL EXTERNAL EXAM - Extremities Exam Extremities Exam: Normal Capillary Refill - Back Exam Back Exam: NORMAL INSPECTION - Neurological Exam Neurological Exam: Alert, Awake Neuro motor strength exam: Left Upper Extremity: 2/1, Right Upper Extremity: 3, Left Lower Extremity: 2/1, Right Lower Extremity: 3 - Psychiatric Exam Psychiatric exam: Normal Affect, Normal Mood - Skin Skin Exam: Dry, Intact, Normal Color Assessment and Plan (1) Cerebrovascular accident Assessment & Plan: plan for physical, occupational, rec and speech therapy team conference for am Status: Acute
[2016-09-30] MEDS: Pantoprazole 40 mg EC Tab PO SCH (06:27)
[2016-09-30] MEDS: Insulin Lispro (humaLOG) 100 Units/ml Inj SC SCH ×4 (06:38→21:43)
--- NOTE | 2016-09-30 10:55 | CP.PCM.PN ---
Subjective - Date & Time of Evaluation Date of Evaluation: 09/30/16 Time of Evaluation: 09:50 - Subjective Subjective: Seen and examined at the bed side. Reviewed yesterday's note and no changes. Tolerating PT/OT. Objective - Vital Signs/Intake and Output Vital Signs (last 24 hours): Temp Pulse Resp BP Pulse Ox 97.9 F 66 20 157/76 H 98 09/30/16 08:31 09/30/16 10:27 09/30/16 08:31 09/30/16 10:27 09/30/16 08:31 - Medications Medications: Current Medications Acetaminophen (Tylenol 325mg Tab) 650 mg PO Q6 PRN PRN Reason: Headache Last Admin: 09/27/16 09:19 Dose: 650 mg Acetaminophen (Tylenol 325mg Tab) 650 mg PO Q6 PRN PRN Reason: Pain scale 4-10 Last Admin: 09/30/16 10:26 Dose: 650 mg Amlodipine Besylate (Norvasc) 5 mg PO DAILY [facility] Last Admin: 09/30/16 10:27 Dose: 5 mg Aspirin (Aspirin) 325 mg PO DAILY [facility] Last Admin: 09/30/16 10:25 Dose: 325 mg Atenolol (Tenormin) 50 mg PO Q12@0900,2100 [facility] Last Admin: 09/30/16 10:26 Dose: 50 mg Atorvastatin Calcium (Lipitor) 80 mg PO HS [facility] Last Admin: 09/29/16 21:38 Dose: 80 mg Docusate Sodium (Colace) 100 mg PO BID [facility] Last Admin: 09/30/16 10:25 Dose: 100 mg Guaifenesin (Robitussin) 100 mg PO Q4 PRN PRN Reason: Cough Last Admin: 09/28/16 20:29 Dose: 100 mg Insulin Human Lispro (Humalog) 0 units SC ACHS [facility] PRN Reason: Protocol Last Admin: 09/30/16 06:38 Dose: Not Given Lisinopril (Zestril) 20 mg PO DAILY [facility] Last Admin: 09/30/16 10:27 Dose: 20 mg Nitroglycerin (Nitrostat Sl Tab) 0.4 mg SL Q5M PRN PRN Reason: Other Pantoprazole Sodium (Protonix Ec Tab) 40 mg PO DAILY@0700 [facility] Last Admin: 09/30/16 06:27 Dose: 40 mg - Constitutional Appears: Well, No Acute Distress - Head Exam Head Exam: ATRAUMATIC, NORMAL INSPECTION, NORMOCEPHALIC - Eye Exam Eye Exam: EOMI, Normal appearance, PERRL Pupil Exam: NORMAL ACCOMODATION, PERRL - ENT Exam ENT Exam: Mucous Membranes Moist, Normal Exam - Neck Exam Neck Exam: Full ROM, Normal Inspection. absent: Lymphadenopathy - Respiratory Exam Respiratory Exam: Clear to Ausculation Bilateral, NORMAL BREATHING PATTERN - Cardiovascular Exam Cardiovascular Exam: REGULAR RHYTHM, +S1, +S2. absent: Murmur - GI/Abdominal Exam GI & Abdominal Exam: Soft, Normal Bowel Sounds. absent: Tenderness - Extremities Exam Extremities Exam: Full ROM, Normal Capillary Refill, Normal Inspection. absent : Joint Swelling, Pedal Edema - Back Exam Back Exam: NORMAL INSPECTION - Neurological Exam Neurological Exam: Alert, Awake, CN II-XII Intact, Normal Gait, Oriented x3 Neuro motor strength exam: Left Upper Extremity: 3, Right Upper Extremity: 5, Left Lower Extremity: 3, Right Lower Extremity: 5 - Psychiatric Exam Psychiatric exam: Normal Affect - Skin Skin Exam: Dry, Intact, Normal Color, Warm - Additional Findings Additional findings: X-Ray Left Shoulder: No Fracture or dislocation. Assessment and Plan (1) Acute cerebrovascular accident (CVA) Assessment & Plan: Left sided Hemiplegia Fall, Left Flank Pain ASA/Lipitor Physiatry Consult Tylenol Fall Precaution Neurocheck Status: Acute Priority: High (2) Diabetes mellitus Assessment and Plan: with Novolog Coverage Status: Chronic Priority: Medium (3) Hypertension Assessment and Plan: Keep sbp about 50 and DB about 85 Status: Chronic Priority: Low (4) Fall Assessment and Plan: S/P Event Monitor insertion at [facility] Status: Acute
--- NOTE | 2016-09-30 12:21 | PSY.TMCNF ---
Nursing - Vital Signs Vital Signs (Last 8 hours): Vital Signs 09/30/16 09/30/16 09/30/16 08:31 10:26 10:27 Temperature 97.9 F Pulse Rate 68 66 66 Respiratory 20 Rate Blood Pressure 153/74 H 157/76 H 157/76 H O2 Sat by Pulse 98 Oximetry Pain: 0 - Medications/Other Issues Comment: Pt at moderate nutritional risk. goals: 1. Consume 75-100% at mealtimes. 2. Maintain good glycemic control:GLU:70mg/dl-180mg/dl. 3. Report regular BM at next nutrition rx according to pt individual BM rx. Follow-up due on 10/04/2016 - Bladder Management Bladder Pattern: Normal Voiding Method: Toilet, Urinal - Bowel Management Bowel Pattern: Normal - Goals/Time Frame Comments: Pt was seen awake and alert sitting in his wheelchair in his room. Pt agreeable to participate in session. supervisor model making Deyanira Cervantes was present to translate on behalf of pt. Pt reported that he prefers urdu as he has trouble at times understanding turkish. Pt was able to identify his leisure interests such as reading, listening to music, and enjoys playing [employer] [place]. Pt stated that he assists taking care of his father at home. Pt also c/o shoulder pain and limited ROM. RN aware. Pt's mood was stable-positive during visit. Physical Therapy - Bed Mobility Bed Mobility: Verbal Cues, Contact Guard - Transfers Wheelchair to Mat: Verbal Cues, Contact Guard, Minimal Assistance Sit to Stand: Verbal Cues, Contact Guard - Ambulation Level of Assistance: Moderate Assistance Distance (ft.): 150 Assistive Devices: N/A - Stair Negotiation Stairs: Level of Assistance: Not Tested - Standing Balance Static Stand: Contact Guard Assist Dynamic Stand: Minimal Assistance Comment: 1 flight of 8 inch steps with min A, step to pattern. -VCs for sequencing. -VC to place full foot on each step for safety. -patient uses UE to pull himself up and requires cues to improve activation of LE for ascent up steps - Pain Management Techniques: Medication - Insight/Carryover Insight/Carryover: Good - Patient/Family Education Comment: safety, therapy schedule, POC, therapy goals, use of call donahue, fall prevention techniques, transfers, mobility - Assessment/Plan Assessment: Pt is agreeable to participate in recreation therapy sessions. Pt has participated in dominoes task with peers and is independent with task. Pt has also received stroke recovery education information. Pt would benefit from recreation therapy sessions to improve leisure awarenes slevel, L side weakness , and to improve safety awareness and arousal level. - Goals Timeframe: 7 days Goals: 1 flight with single rail with CS. Transfers with CS with SPC. level surface with CG with SPC x 250 feet. distant supervision with all bed/mat mobility - Provider License Number: [id number] Occupational Therapy - Arousal/Attention/Orientation Patient Orientation: Person, Place, Time, Appropriate to Age, Appropriate to Situation - ADL/IADL Self Feeding: Supervision, Verbal Cues, Set-up Help Grooming: Minimal Assistance Bathing-Upper Extremity: Moderate Assistance Bathing-Lower Extremity: Moderate Assistance Dressing-Upper Extremity: Moderate Assistance Dressing-Lower Extremity: Moderate Assistance - Sitting Balance Static Sitting: Supervision Dynamic Sitting: Contact Guard Assist - Transfers Wheelchair to Bed Transfers: Minimal Assistance Toilet Transfers: Minimal Assistance Tub Transfers: Moderate Assistance - Upper Extremity Status Left Upper Extremity Comment: impaired with shoulder external rotation, retraction and flexion. PROM WFL except shldr flexion ~80* secondary to pain, shldr ER - Pain Alleviating Techniques: Medication - Insight/Carryover Insight/Carryover: Good - Patient/Family Education Comment: safety, therapy schedule, POC, therapy goals, use of call donahue, fall prevention techniques, transfers, mobility - Assessment/Plan Assessment: Pt is agreeable to participate in recreation therapy sessions. Pt has participated in dominoes task with peers and is independent with task. Pt has also received stroke recovery education information. Pt would benefit from recreation therapy sessions to improve leisure awarenes slevel, L side weakness , and to improve safety awareness and arousal level. - Goals Timeframe: 7 days Goals: 1 flight with single rail with CS. Transfers with CS with SPC. level surface with CG with SPC x 250 feet. distant supervision with all bed/mat mobility - Provider Therapist: montserrat mcpherson Speech Therapy - Plan Assessment: Pt is agreeable to participate in recreation therapy sessions. Pt has participated in dominoes task with peers and is independent with task. Pt has also received stroke recovery education information. Pt would benefit from recreation therapy sessions to improve leisure awarenes slevel, L side weakness , and to improve safety awareness and arousal level. Recreational Therapy - Participation Participation: Participates in Individual and/or Group Sessions - Attendance Attendance: 3-5 times per week - Activities Leisure Activities: Cards and Games - Socialization Level of Socialization: Initiates/interacts freely with care givers and peer - Diversional Time Diversional Time: dominoes, likes to read - Assessment Assessment/Plan: Pt is agreeable to participate in recreation therapy sessions. Pt has participated in [employer] task with peers and is independent with task. Pt has also received stroke recovery education information. Pt would benefit from recreation therapy sessions to improve leisure awarenes slevel, L side weakness, and to improve safety awareness and arousal level. Problems Currently Limiting Participation: decrease leisure awareness level, L sided weakness Goals and Time Frame: Pt will be encouraged to participate in 1:1 and group recreation therapy sessions 3-5x week to improve leisure awareness level, arousal level, and improve L side weakness. - Provider Therapist: Mary Aguilar, SUPERVISOR WINTER #[id number] Nutrition - Current Diet Current Diet/ Supplement/ Feedings: Heart healthy Moderate consistent CHO 2 gram Na lactose restricted - Appetite Percent Meal Consumed: 75-100% - Assessment/Goals/Time Frame Assessment/Goals/Time Frame: Pt at moderate nutritional risk. goals: 1. Consume 75-100% at mealtimes. 2. Maintain good glycemic control:GLU:70mg/dl- 180mg/dl. 3. Report regular BM at next nutrition rx according to pt individual BM rx. Follow-up due on 10/04/2016 - Provider Provider: Lizeth Rahman RD Case Management - Discharge Plan Discharge Plan: Home with significant other/family Rehabilitation Plan - Treatment Plan Treatment Plan: Physical Therapy, Occupational Therapy, Dietary, Patient/Family Education - Recommendation Recommendation: Physical Therapy, Occupational Therapy, Dietary, Patient/Family Education - Discharge Plan Discharge to: Home (Dc October 10)
--- NOTE | 2016-09-30 14:53 | CP.PCM.PN ---
Subjective - Date & Time of Evaluation Date of Evaluation: 09/30/16 Time of Evaluation: 11:00 - Subjective Subjective: no acute complaints except mild shoulder pain Objective - Vital Signs/Intake and Output Vital Signs (last 24 hours): Temp Pulse Resp BP Pulse Ox 97.9 F 66 20 157/76 H 98 09/30/16 08:31 09/30/16 10:27 09/30/16 08:31 09/30/16 10:27 09/30/16 08:31 - Medications Medications: Current Medications Acetaminophen (Tylenol 325mg Tab) 650 mg PO Q6 PRN PRN Reason: Headache Last Admin: 09/27/16 09:19 Dose: 650 mg Acetaminophen (Tylenol 325mg Tab) 650 mg PO Q6 PRN PRN Reason: Pain scale 4-10 Last Admin: 09/30/16 10:26 Dose: 650 mg Amlodipine Besylate (Norvasc) 5 mg PO DAILY [facility] Last Admin: 09/30/16 10:27 Dose: 5 mg Aspirin (Aspirin) 325 mg PO DAILY [facility] Last Admin: 09/30/16 10:25 Dose: 325 mg Atenolol (Tenormin) 50 mg PO Q12@0900,2100 [facility] Last Admin: 09/30/16 10:26 Dose: 50 mg Atorvastatin Calcium (Lipitor) 80 mg PO HS [facility] Last Admin: 09/29/16 21:38 Dose: 80 mg Docusate Sodium (Colace) 100 mg PO BID [facility] Last Admin: 09/30/16 10:25 Dose: 100 mg Guaifenesin (Robitussin) 100 mg PO Q4 PRN PRN Reason: Cough Last Admin: 09/28/16 20:29 Dose: 100 mg Insulin Human Lispro (Humalog) 0 units SC ACHS [facility] PRN Reason: Protocol Last Admin: 09/30/16 12:17 Dose: 2 unit Lisinopril (Zestril) 20 mg PO DAILY [facility] Last Admin: 09/30/16 10:27 Dose: 20 mg Nitroglycerin (Nitrostat Sl Tab) 0.4 mg SL Q5M PRN PRN Reason: Other Pantoprazole Sodium (Protonix Ec Tab) 40 mg PO DAILY@0700 [facility] Last Admin: 09/30/16 06:27 Dose: 40 mg - Head Exam Head Exam: ATRAUMATIC, NORMAL INSPECTION, NORMOCEPHALIC - Eye Exam Eye Exam: EOMI, Normal appearance, PERRL Pupil Exam: NORMAL ACCOMODATION - ENT Exam ENT Exam: Mucous Membranes Moist, Normal Exam - Respiratory Exam Respiratory Exam: NORMAL BREATHING PATTERN - Cardiovascular Exam Cardiovascular Exam: REGULAR RHYTHM - GI/Abdominal Exam GI & Abdominal Exam: Normal Bowel Sounds - Exam External exam: NORMAL EXTERNAL EXAM - Extremities Exam Extremities Exam: Normal Capillary Refill - Neurological Exam Neurological Exam: Alert, Awake Neuro motor strength exam: Left Upper Extremity: 2/1, Right Upper Extremity: 3, Left Lower Extremity: 2/1, Right Lower Extremity: 3 - Psychiatric Exam Psychiatric exam: Normal Affect, Normal Mood - Skin Skin Exam: Dry, Intact Assessment and Plan (1) Cerebrovascular accident Status: Acute - Assessment and Plan (Free Text) Assessment: plan for physical, occupational, rec therapy status post team conference monitor bowels and skin
[2016-10-01] MEDS: Pantoprazole 40 mg EC Tab PO SCH (06:43)
[2016-10-01] MEDS: Insulin Lispro (humaLOG) 100 Units/ml Inj SC SCH ×4 (06:57→21:28)
[2016-10-01] MEDS: Calcium-Vit D 500 mg-200 Units Tab UD PO SCH ×2 (08:51→17:35)
[2016-10-01] MEDS: Ergocalciferol 50,000 Intl Units Cap PO SCH (08:52)
--- NOTE | 2016-10-01 23:40 | CP.PCM.PN ---
Objective - Vital Signs/Intake and Output Vital Signs (last 24 hours): Temp Pulse Resp BP Pulse Ox 98.0 F 79 20 132/84 98 10/01/16 20:42 10/01/16 21:27 10/01/16 20:42 10/01/16 21:27 10/01/16 20:42 - Medications Medications: Current Medications Acetaminophen (Tylenol 325mg Tab) 650 mg PO Q6 PRN PRN Reason: Headache Last Admin: 09/27/16 09:19 Dose: 650 mg Acetaminophen (Tylenol 325mg Tab) 650 mg PO Q6 PRN PRN Reason: Pain scale 4-10 Last Admin: 09/30/16 10:26 Dose: 650 mg Amlodipine Besylate (Norvasc) 5 mg PO DAILY [facility] Last Admin: 10/01/16 08:53 Dose: 5 mg Aspirin (Aspirin) 325 mg PO DAILY [facility] Last Admin: 10/01/16 08:52 Dose: 325 mg Atenolol (Tenormin) 50 mg PO Q12@0900,2100 [facility] Last Admin: 10/01/16 21:27 Dose: Not Given Atorvastatin Calcium (Lipitor) 80 mg PO HS [facility] Last Admin: 10/01/16 21:29 Dose: 80 mg Calcium/Vitamin D (Oyster Shell Calcium/Vitamin D 500 Mg-200 Iu) 1 tab PO BIDWM [facility] Last Admin: 10/01/16 17:35 Dose: 1 tab Docusate Sodium (Colace) 100 mg PO BID [facility] Last Admin: 10/01/16 17:35 Dose: 100 mg Ergocalciferol (Drisdol 50,000 Intl Units Cap) 1 cap PO CATY [facility] Stop: 12/17/16 09:01 Last Admin: 10/01/16 08:52 Dose: 1 cap Guaifenesin (Robitussin) 100 mg PO Q4 PRN PRN Reason: Cough Last Admin: 09/28/16 20:29 Dose: 100 mg Insulin Human Lispro (Humalog) 0 units SC [facility] PRN Reason: Protocol Last Admin: 10/01/16 21:28 Dose: Not Given Lisinopril (Zestril) 20 mg PO DAILY [facility] Last Admin: 10/01/16 08:54 Dose: 20 mg Nitroglycerin (Nitrostat Sl Tab) 0.4 mg SL Q5M PRN PRN Reason: Other Pantoprazole Sodium (Protonix Ec Tab) 40 mg PO DAILY@0700 [facility] Last Admin: 10/01/16 06:43 Dose: 40 mg Assessment and Plan (1) Acute cerebrovascular accident (CVA) Assessment & Plan: Left sided Hemiplegia Fall, Left Flank Pain ASA/Lipitor Physiatry Consult Tylenol Fall Precaution Neurocheck Status: Acute Priority: High (2) Diabetes mellitus Assessment and Plan: with Novolog Coverage Status: Chronic Priority: Medium (3) Hypertension Assessment and Plan: Keep sbp about 50 and DB about 85 Status: Chronic Priority: Low (4) Fall Assessment and Plan: S/P Event Monitor insertion at [facility] Status: Acute
[2016-10-02] MEDS: Insulin Lispro (humaLOG) 100 Units/ml Inj SC SCH ×4 (06:49→21:23)
[2016-10-02] MEDS: Pantoprazole 40 mg EC Tab PO SCH (06:49)
[2016-10-02] MEDS: Calcium-Vit D 500 mg-200 Units Tab UD PO SCH ×2 (09:03→16:40)
--- NOTE | 2016-10-02 14:23 | CP.PCM.PN ---
Subjective - Date & Time of Evaluation Date of Evaluation: 10/02/16 Time of Evaluation: 13:00 - Subjective Subjective: no acute complaints at present Objective - Vital Signs/Intake and Output Vital Signs (last 24 hours): Temp Pulse Resp BP Pulse Ox 98.1 F 63 20 140/71 96 10/02/16 08:17 10/02/16 09:04 10/02/16 08:17 10/02/16 09:04 10/02/16 08:17 - Medications Medications: Current Medications Acetaminophen (Tylenol 325mg Tab) 650 mg PO Q6 PRN PRN Reason: Headache Last Admin: 09/27/16 09:19 Dose: 650 mg Acetaminophen (Tylenol 325mg Tab) 650 mg PO Q6 PRN PRN Reason: Pain scale 4-10 Last Admin: 09/30/16 10:26 Dose: 650 mg Amlodipine Besylate (Norvasc) 5 mg PO DAILY [facility] Last Admin: 10/02/16 09:04 Dose: 5 mg Aspirin (Aspirin) 325 mg PO DAILY [facility] Last Admin: 10/02/16 09:07 Dose: 325 mg Atenolol (Tenormin) 50 mg PO Q12@0900,2100 [facility] Last Admin: 10/02/16 09:03 Dose: 50 mg Atorvastatin Calcium (Lipitor) 80 mg PO HS [facility] Last Admin: 10/01/16 21:29 Dose: 80 mg Calcium/Vitamin D (Oyster Shell Calcium/Vitamin D 500 Mg-200 Iu) 1 tab PO BIDWM [facility] Last Admin: 10/02/16 09:03 Dose: 1 tab Docusate Sodium (Colace) 100 mg PO BID [facility] Last Admin: 10/02/16 09:04 Dose: 100 mg Ergocalciferol (Drisdol 50,000 Intl Units Cap) 1 cap PO CATY [facility] Stop: 12/17/16 09:01 Last Admin: 10/01/16 08:52 Dose: 1 cap Guaifenesin (Robitussin) 100 mg PO Q4 PRN PRN Reason: Cough Last Admin: 09/28/16 20:29 Dose: 100 mg Insulin Human Lispro (Humalog) 0 units SC ACHS [facility] PRN Reason: Protocol Last Admin: 10/02/16 12:28 Dose: 2 unit Lisinopril (Zestril) 20 mg PO DAILY [facility] Last Admin: 10/02/16 09:04 Dose: 20 mg Nitroglycerin (Nitrostat Sl Tab) 0.4 mg SL Q5M PRN PRN Reason: Other Pantoprazole Sodium (Protonix Ec Tab) 40 mg PO DAILY@0700 [facility] Last Admin: 10/02/16 06:49 Dose: 40 mg - Head Exam Head Exam: ATRAUMATIC, NORMAL INSPECTION - Eye Exam Eye Exam: EOMI, Normal appearance, PERRL Pupil Exam: NORMAL ACCOMODATION - ENT Exam ENT Exam: Mucous Membranes Moist, Normal Exam - Neck Exam Neck Exam: Full ROM, Normal Inspection - Respiratory Exam Respiratory Exam: NORMAL BREATHING PATTERN - Cardiovascular Exam Cardiovascular Exam: REGULAR RHYTHM - GI/Abdominal Exam GI & Abdominal Exam: Soft, Normal Bowel Sounds - Exam External exam: NORMAL EXTERNAL EXAM - Extremities Exam Extremities Exam: Calf Tenderness, Normal Capillary Refill - Neurological Exam Neurological Exam: Alert, Awake Neuro motor strength exam: Left Upper Extremity: 3, Right Upper Extremity: 3, Left Lower Extremity: 3, Right Lower Extremity: 3 - Psychiatric Exam Psychiatric exam: Normal Affect, Normal Mood - Skin Skin Exam: Dry, Intact Assessment and Plan (1) Cerebrovascular accident Assessment & Plan: plan for physical, occupational, rec therapy monitor, skin, labs and bowel Status: Acute
[2016-10-03] MEDS: Pantoprazole 40 mg EC Tab PO SCH (06:09)
[2016-10-03] MEDS: Insulin Lispro (humaLOG) 100 Units/ml Inj SC SCH ×4 (06:35→21:19)
[2016-10-03] MEDS: Calcium-Vit D 500 mg-200 Units Tab UD PO SCH ×2 (08:00→17:06)
--- NOTE | 2016-10-03 17:29 | CP.PCM.PN ---
Subjective - Date & Time of Evaluation Date of Evaluation: 10/03/16 Time of Evaluation: 16:35 Objective - Vital Signs/Intake and Output Vital Signs (last 24 hours): Temp Pulse Resp BP Pulse Ox 97.9 F 61 20 155/73 H 100 10/03/16 07:31 10/03/16 08:01 10/03/16 07:31 10/03/16 08:01 10/03/16 07:31 - Medications Medications: Current Medications Acetaminophen (Tylenol 325mg Tab) 650 mg PO Q6 PRN PRN Reason: Headache Last Admin: 09/27/16 09:19 Dose: 650 mg Acetaminophen (Tylenol 325mg Tab) 650 mg PO Q6 PRN PRN Reason: Pain scale 4-10 Last Admin: 09/30/16 10:26 Dose: 650 mg Amlodipine Besylate (Norvasc) 5 mg PO DAILY [facility] Last Admin: 10/03/16 08:00 Dose: 5 mg Aspirin (Aspirin) 325 mg PO DAILY [facility] Last Admin: 10/03/16 08:00 Dose: 325 mg Atenolol (Tenormin) 50 mg PO Q12@0900,2100 [facility] Last Admin: 10/03/16 08:01 Dose: 50 mg Atorvastatin Calcium (Lipitor) 80 mg PO HS [facility] Last Admin: 10/02/16 21:22 Dose: 80 mg Calcium/Vitamin D (Oyster Shell Calcium/Vitamin D 500 Mg-200 Iu) 1 tab PO BIDWM [facility] Last Admin: 10/03/16 17:06 Dose: 1 tab Docusate Sodium (Colace) 100 mg PO BID [facility] Last Admin: 10/03/16 17:06 Dose: 100 mg Ergocalciferol (Drisdol 50,000 Intl Units Cap) 1 cap PO CATY [facility] Stop: 12/17/16 09:01 Last Admin: 10/01/16 08:52 Dose: 1 cap Guaifenesin (Robitussin) 100 mg PO Q4 PRN PRN Reason: Cough Last Admin: 09/28/16 20:29 Dose: 100 mg Insulin Human Lispro (Humalog) 0 units SC ACHS [facility] PRN Reason: Protocol Last Admin: 10/03/16 17:06 Dose: 1 unit Lisinopril (Zestril) 20 mg PO DAILY [facility] Last Admin: 10/03/16 08:01 Dose: 20 mg Nitroglycerin (Nitrostat Sl Tab) 0.4 mg SL Q5M PRN PRN Reason: Other Pantoprazole Sodium (Protonix Ec Tab) 40 mg PO DAILY@0700 [facility] Last Admin: 10/03/16 06:09 Dose: 40 mg Assessment and Plan (1) Acute cerebrovascular accident (CVA) Assessment & Plan: Left sided Hemiplegia Fall, Left Flank Pain ASA/Lipitor Physiatry Consult Tylenol Fall Precaution Neurocheck Status: Acute Priority: High (2) Diabetes mellitus Assessment and Plan: SS with Novolog Coverage Status: Chronic Priority: Medium (3) Hypertension Assessment and Plan: Keep sbp about 50 and DB about 85 Status: Chronic Priority: Low (4) Fall Assessment and Plan: S/P Event Monitor insertion at [facility] Status: Acute
[2016-10-04] MEDS: Pantoprazole 40 mg EC Tab PO SCH (06:22)
[2016-10-04] MEDS: Insulin Lispro (humaLOG) 100 Units/ml Inj SC SCH ×4 (06:31→21:35)
[2016-10-04] MEDS: Lidocaine 5% Patch TD SCH (08:28)
[2016-10-04] MEDS: Calcium-Vit D 500 mg-200 Units Tab UD PO SCH ×2 (08:30→16:49)
--- NOTE | 2016-10-04 11:49 | CP.PCM.PN ---
Subjective - Date & Time of Evaluation Date of Evaluation: 10/03/16 Time of Evaluation: 15:00 - Subjective Subjective: no acute complaints of pain, mild shoulder discomfort Objective - Vital Signs/Intake and Output Vital Signs (last 24 hours): Temp Pulse Resp BP Pulse Ox 97.7 F 60 18 160/75 H 99 10/04/16 08:27 10/04/16 08:30 10/04/16 08:27 10/04/16 08:30 10/04/16 08:27 - Medications Medications: Current Medications Acetaminophen (Tylenol 325mg Tab) 650 mg PO Q6 PRN PRN Reason: Headache Last Admin: 09/27/16 09:19 Dose: 650 mg Acetaminophen (Tylenol 325mg Tab) 650 mg PO Q6 PRN PRN Reason: Pain scale 4-10 Last Admin: 10/03/16 21:14 Dose: 650 mg Amlodipine Besylate (Norvasc) 5 mg PO DAILY [facility] Last Admin: 10/04/16 08:30 Dose: 5 mg Aspirin (Aspirin) 325 mg PO DAILY [facility] Last Admin: 10/04/16 08:29 Dose: 325 mg Atenolol (Tenormin) 50 mg PO Q12@0900,2100 [facility] Last Admin: 10/04/16 08:29 Dose: 50 mg Atorvastatin Calcium (Lipitor) 80 mg PO HS [facility] Last Admin: 10/03/16 21:14 Dose: 80 mg Calcium/Vitamin D (Oyster Shell Calcium/Vitamin D 500 Mg-200 Iu) 1 tab PO BIDWM [facility] Last Admin: 10/04/16 08:30 Dose: 1 tab Docusate Sodium (Colace) 100 mg PO BID [facility] Last Admin: 10/04/16 08:30 Dose: 100 mg Ergocalciferol (Drisdol 50,000 Intl Units Cap) 1 cap PO CATY [facility] Stop: 12/17/16 09:01 Last Admin: 10/01/16 08:52 Dose: 1 cap Guaifenesin (Robitussin) 100 mg PO Q4 PRN PRN Reason: Cough Last Admin: 09/28/16 20:29 Dose: 100 mg Insulin Human Lispro (Humalog) 0 units SC ACHS [facility] PRN Reason: Protocol Last Admin: 10/04/16 06:31 Dose: Not Given Lidocaine (Lidoderm) 1 ea TD DAILY [facility] Last Admin: 10/04/16 08:28 Dose: 1 ea Lisinopril (Zestril) 20 mg PO DAILY [facility] Last Admin: 10/04/16 08:30 Dose: 20 mg Nitroglycerin (Nitrostat Sl Tab) 0.4 mg SL Q5M PRN PRN Reason: Other Pantoprazole Sodium (Protonix Ec Tab) 40 mg PO DAILY@0700 [facility] Last Admin: 10/04/16 06:22 Dose: 40 mg - Head Exam Head Exam: ATRAUMATIC, NORMAL INSPECTION, NORMOCEPHALIC - Eye Exam Eye Exam: EOMI, Normal appearance Pupil Exam: NORMAL ACCOMODATION - ENT Exam ENT Exam: Mucous Membranes Moist, Normal Exam - Respiratory Exam Respiratory Exam: NORMAL BREATHING PATTERN - Cardiovascular Exam Cardiovascular Exam: REGULAR RHYTHM - GI/Abdominal Exam GI & Abdominal Exam: Normal Bowel Sounds - Rectal Exam Rectal Exam: NORMAL INSPECTION - Exam External exam: NORMAL EXTERNAL EXAM Bimanual exam: NORMAL BIMANUAL EXAM - Extremities Exam Extremities Exam: Normal Inspection - Back Exam Back Exam: NORMAL INSPECTION - Neurological Exam Neurological Exam: Alert, Awake, CN II-XII Intact Neuro motor strength exam: Left Upper Extremity: 3, Right Upper Extremity: 4, Left Lower Extremity: 3, Right Lower Extremity: 4 - Psychiatric Exam Psychiatric exam: Normal Affect, Normal Mood Assessment and Plan (1) Cerebrovascular accident Status: Acute - Assessment and Plan (Free Text) Assessment: physical, occupational, rec therapy lidoderm patch for the shoulder
--- NOTE | 2016-10-04 18:49 | CP.PCM.PN ---
Subjective - Date & Time of Evaluation Date of Evaluation: 10/04/16 Time of Evaluation: 16:15 Objective - Vital Signs/Intake and Output Vital Signs (last 24 hours): Temp Pulse Resp BP Pulse Ox 97.7 F 60 18 160/75 H 99 10/04/16 08:27 10/04/16 08:30 10/04/16 08:27 10/04/16 08:30 10/04/16 08:27 - Medications Medications: Current Medications Acetaminophen (Tylenol 325mg Tab) 650 mg PO Q6 PRN PRN Reason: Headache Last Admin: 09/27/16 09:19 Dose: 650 mg Acetaminophen (Tylenol 325mg Tab) 650 mg PO Q6 PRN PRN Reason: Pain scale 4-10 Last Admin: 10/03/16 21:14 Dose: 650 mg Amlodipine Besylate (Norvasc) 5 mg PO DAILY [facility] Last Admin: 10/04/16 08:30 Dose: 5 mg Aspirin (Aspirin) 325 mg PO DAILY [facility] Last Admin: 10/04/16 08:29 Dose: 325 mg Atenolol (Tenormin) 50 mg PO Q12@0900,2100 [facility] Last Admin: 10/04/16 08:29 Dose: 50 mg Atorvastatin Calcium (Lipitor) 80 mg PO HS [facility] Last Admin: 10/03/16 21:14 Dose: 80 mg Calcium/Vitamin D (Oyster Shell Calcium/Vitamin D 500 Mg-200 Iu) 1 tab PO BIDWM [facility] Last Admin: 10/04/16 16:49 Dose: 1 tab Docusate Sodium (Colace) 100 mg PO BID [facility] Last Admin: 10/04/16 16:50 Dose: 100 mg Ergocalciferol (Drisdol 50,000 Intl Units Cap) 1 cap PO CATY [facility] Stop: 12/17/16 09:01 Last Admin: 10/01/16 08:52 Dose: 1 cap Guaifenesin (Robitussin) 100 mg PO Q4 PRN PRN Reason: Cough Last Admin: 09/28/16 20:29 Dose: 100 mg Insulin Human Lispro (Humalog) 0 units SC ACHS [facility] PRN Reason: Protocol Last Admin: 10/04/16 16:17 Dose: Not Given Lidocaine (Lidoderm) 1 ea TD DAILY [facility] Last Admin: 10/04/16 08:28 Dose: 1 ea Lisinopril (Zestril) 20 mg PO DAILY [facility] Last Admin: 10/04/16 08:30 Dose: 20 mg Nitroglycerin (Nitrostat Sl Tab) 0.4 mg SL Q5M PRN PRN Reason: Other Pantoprazole Sodium (Protonix Ec Tab) 40 mg PO DAILY@0700 [facility] Last Admin: 10/04/16 06:22 Dose: 40 mg Assessment and Plan (1) Acute cerebrovascular accident (CVA) Assessment & Plan: Left sided Hemiplegia Fall, Left Flank Pain ASA/Lipitor Physiatry Consult Tylenol Fall Precaution Neurocheck Status: Acute Priority: High (2) Diabetes mellitus Assessment and Plan: with Novolog Coverage Status: Chronic Priority: Medium (3) Hypertension Assessment and Plan: Keep sbp about 50 and DB about 85 Status: Chronic Priority: Low (4) Fall Assessment and Plan: S/P Event Monitor insertion at [facility] Status: Acute
[2016-10-05] MEDS: Pantoprazole 40 mg EC Tab PO SCH (06:18)
[2016-10-05] MEDS: Insulin Lispro (humaLOG) 100 Units/ml Inj SC SCH ×4 (06:32→21:10)
[2016-10-05] MEDS: Lidocaine 5% Patch TD SCH (08:56)
[2016-10-05] MEDS: Calcium-Vit D 500 mg-200 Units Tab UD PO SCH ×2 (08:58→17:16)
[2016-10-05 12:43] LABS: HEMATOCRIT 40.2 % (35.0-51.0); MEAN CELL VOLUME 84.9 fl (80.0-94.0); MEAN CORPUSCULAR HEMOGLOBIN 28.6 pg (27.0-31.0); MEAN CORPUSCULAR HGB CONC 33.7 g/dL (33.0-37.0); RED CELL DISTRIBUTION WIDTH 12.8 % (11.5-14.5); WHITE BLOOD COUNT 7.2 K/uL (4.8-10.8)
[2016-10-05 13:02] LABS: BLOOD UREA NITROGEN 37 mg/dl (9-20); CALCIUM 9.6 mg/dL (8.4-10.2); CARBON DIOXIDE 21 mmol/L (22-30); CHLORIDE 103 mmol/L (98-107); GFR AFRICAN-AMERICAN > 60; GLUCOSE,RANDOM 196 mg/dL (75-110); POTASSIUM 4.3 MMOL/L (3.6-5.0); SODIUM 139 mmol/l (132-148); TOTAL PROTEIN 8.1 G/DL (6.3-8.2)
[2016-10-05 13:03] LABS: ALB/GLOB RATIO 1.1 (1.0-2.1); ALKALINE PHOSPHATASE 97 U/L (38-126); ALT/SGPT 33 U/L (21-72); AST/SGOT 29 U/L (17-59)
--- NOTE | 2016-10-05 15:31 | CP.PCM.PN ---
Subjective - Date & Time of Evaluation Date of Evaluation: 10/05/16 Time of Evaluation: 14:00 - Subjective Subjective: no acute complaints of pain, feels better with the patch on the shoulder Objective - Vital Signs/Intake and Output Vital Signs (last 24 hours): Temp Pulse Resp BP Pulse Ox 98.1 F 61 20 119/66 94 L 10/05/16 09:27 10/05/16 09:27 10/05/16 09:27 10/05/16 09:27 10/05/16 09:27 - Medications Medications: Current Medications Acetaminophen (Tylenol 325mg Tab) 650 mg PO Q6 PRN PRN Reason: Headache Last Admin: 09/27/16 09:19 Dose: 650 mg Acetaminophen (Tylenol 325mg Tab) 650 mg PO Q6 PRN PRN Reason: Pain scale 4-10 Last Admin: 10/05/16 13:31 Dose: 650 mg Amlodipine Besylate (Norvasc) 5 mg PO DAILY [facility] Last Admin: 10/05/16 08:58 Dose: Not Given Aspirin (Aspirin) 325 mg PO DAILY [facility] Last Admin: 10/05/16 08:56 Dose: 325 mg Atenolol (Tenormin) 50 mg PO Q12@0900,2100 [facility] Last Admin: 10/05/16 08:58 Dose: Not Given Atorvastatin Calcium (Lipitor) 80 mg PO HS [facility] Last Admin: 10/04/16 21:31 Dose: 80 mg Calcium/Vitamin D (Oyster Shell Calcium/Vitamin D 500 Mg-200 Iu) 1 tab PO BIDWM [facility] Last Admin: 10/05/16 08:58 Dose: 1 tab Docusate Sodium (Colace) 100 mg PO BID [facility] Last Admin: 10/05/16 08:56 Dose: 100 mg Ergocalciferol (Drisdol 50,000 Intl Units Cap) 1 cap PO CATY [facility] Stop: 12/17/16 09:01 Last Admin: 10/01/16 08:52 Dose: 1 cap Guaifenesin (Robitussin) 100 mg PO Q4 PRN PRN Reason: Cough Last Admin: 09/28/16 20:29 Dose: 100 mg Insulin Human Lispro (Humalog) 0 units SC ACHS [facility] PRN Reason: Protocol Last Admin: 10/05/16 12:20 Dose: 3 unit Lidocaine (Lidoderm) 1 ea TD DAILY [facility] Last Admin: 10/05/16 08:56 Dose: 1 ea Lisinopril (Zestril) 20 mg PO DAILY [facility] Last Admin: 10/05/16 08:58 Dose: Not Given Metformin HCl (Glucophage) 500 mg PO BIDWM [facility] Nitroglycerin (Nitrostat Sl Tab) 0.4 mg SL Q5M PRN PRN Reason: Other Pantoprazole Sodium (Protonix Ec Tab) 40 mg PO DAILY@0700 [facility] Last Admin: 10/05/16 06:18 Dose: 40 mg - Labs Labs: 10/05/16 12:05 10/05/16 12:05 - Head Exam Head Exam: ATRAUMATIC, NORMAL INSPECTION, NORMOCEPHALIC - Eye Exam Eye Exam: EOMI, Normal appearance, PERRL Pupil Exam: NORMAL ACCOMODATION - ENT Exam ENT Exam: Mucous Membranes Moist, Normal Exam - Neck Exam Neck Exam: Normal Inspection - Respiratory Exam Respiratory Exam: NORMAL BREATHING PATTERN - Cardiovascular Exam Cardiovascular Exam: REGULAR RHYTHM - GI/Abdominal Exam GI & Abdominal Exam: Soft, Normal Bowel Sounds - Rectal Exam Rectal Exam: NORMAL INSPECTION - Exam External exam: NORMAL EXTERNAL EXAM - Extremities Exam Extremities Exam: Normal Capillary Refill - Back Exam Back Exam: NORMAL INSPECTION - Neurological Exam Neurological Exam: Alert, Awake Neuro motor strength exam: Left Upper Extremity: 3, Right Upper Extremity: 4, Left Lower Extremity: 3, Right Lower Extremity: 4 - Psychiatric Exam Psychiatric exam: Normal Affect, Normal Mood - Skin Skin Exam: Dry, Intact, Normal Color Assessment and Plan (1) Cerebrovascular accident Status: Acute - Assessment and Plan (Free Text) Assessment: plan for physical, occupational, rec therapy continue to monitor skin, bowel and bladder
--- NOTE | 2016-10-05 23:07 | CP.PCM.PN ---
Subjective - Date & Time of Evaluation Date of Evaluation: 10/05/16 Time of Evaluation: 12:25 Objective - Vital Signs/Intake and Output Vital Signs (last 24 hours): Temp Pulse Resp BP Pulse Ox 97.8 F 64 20 150/73 97 10/05/16 21:07 10/05/16 21:07 10/05/16 21:07 10/05/16 21:07 10/05/16 21:07 - Medications Medications: Current Medications Acetaminophen (Tylenol 325mg Tab) 650 mg PO Q6 PRN PRN Reason: Headache Last Admin: 09/27/16 09:19 Dose: 650 mg Acetaminophen (Tylenol 325mg Tab) 650 mg PO Q6 PRN PRN Reason: Pain scale 4-10 Last Admin: 10/05/16 13:31 Dose: 650 mg Amlodipine Besylate (Norvasc) 5 mg PO DAILY [facility] Last Admin: 10/05/16 08:58 Dose: Not Given Aspirin (Aspirin) 325 mg PO DAILY [facility] Last Admin: 10/05/16 08:56 Dose: 325 mg Atenolol (Tenormin) 50 mg PO Q12@0900,2100 [facility] Last Admin: 10/05/16 21:07 Dose: 50 mg Atorvastatin Calcium (Lipitor) 80 mg PO HS [facility] Last Admin: 10/05/16 21:09 Dose: 80 mg Calcium/Vitamin D (Oyster Shell Calcium/Vitamin D 500 Mg-200 Iu) 1 tab PO BIDWM [facility] Last Admin: 10/05/16 17:16 Dose: 1 tab Docusate Sodium (Colace) 100 mg PO BID [facility] Last Admin: 10/05/16 17:16 Dose: 100 mg Ergocalciferol (Drisdol 50,000 Intl Units Cap) 1 cap PO CATY [facility] Stop: 12/17/16 09:01 Last Admin: 10/01/16 08:52 Dose: 1 cap Guaifenesin (Robitussin) 100 mg PO Q4 PRN PRN Reason: Cough Last Admin: 09/28/16 20:29 Dose: 100 mg Insulin Human Lispro (Humalog) 0 units SC ACHS [facility] PRN Reason: Protocol Last Admin: 10/05/16 21:10 Dose: Not Given Lidocaine (Lidoderm) 1 ea TD DAILY [facility] Last Admin: 10/05/16 08:56 Dose: 1 ea Lisinopril (Zestril) 20 mg PO DAILY [facility] Last Admin: 10/05/16 08:58 Dose: Not Given Metformin HCl (Glucophage) 500 mg PO BIDWM [facility] Last Admin: 10/05/16 17:16 Dose: 500 mg Nitroglycerin (Nitrostat Sl Tab) 0.4 mg SL Q5M PRN PRN Reason: Other Pantoprazole Sodium (Protonix Ec Tab) 40 mg PO DAILY@0700 [facility] Last Admin: 10/05/16 06:18 Dose: 40 mg - Labs Labs: 10/05/16 12:05 10/05/16 12:05 Assessment and Plan (1) Acute cerebrovascular accident (CVA) Assessment & Plan: Left sided Hemiplegia Fall, Left Flank Pain ASA/Lipitor Physiatry Consult Tylenol Fall Precaution Neurocheck Status: Acute Priority: High (2) Diabetes mellitus Assessment and Plan: with Novolog Coverage Status: Chronic Priority: Medium (3) Hypertension Assessment and Plan: Keep sbp about 50 and DB about 85 Status: Chronic Priority: Low (4) Fall Assessment and Plan: S/P Event Monitor insertion at [facility] Status: Acute
[2016-10-06] MEDS: Pantoprazole 40 mg EC Tab PO SCH (06:54)
[2016-10-06] MEDS: Insulin Lispro (humaLOG) 100 Units/ml Inj SC SCH ×4 (07:02→22:26)
[2016-10-06] MEDS: Lidocaine 5% Patch TD SCH (08:34)
[2016-10-06] MEDS: Calcium-Vit D 500 mg-200 Units Tab UD PO SCH ×2 (08:34→16:41)
--- NOTE | 2016-10-06 23:58 | CP.PCM.PN ---
Subjective - Date & Time of Evaluation Date of Evaluation: 10/06/16 Time of Evaluation: 18:00 Objective - Vital Signs/Intake and Output Vital Signs (last 24 hours): Temp Pulse Resp BP Pulse Ox 97.9 F 64 20 162/74 H 99 10/06/16 08:25 10/06/16 20:51 10/06/16 08:25 10/06/16 20:51 10/06/16 08:25 - Medications Medications: Current Medications Acetaminophen (Tylenol 325mg Tab) 650 mg PO Q6 PRN PRN Reason: Headache Last Admin: 09/27/16 09:19 Dose: 650 mg Acetaminophen (Tylenol 325mg Tab) 650 mg PO Q6 PRN PRN Reason: Pain scale 4-10 Last Admin: 10/05/16 13:31 Dose: 650 mg Amlodipine Besylate (Norvasc) 5 mg PO DAILY [facility] Last Admin: 10/06/16 08:33 Dose: 5 mg Aspirin (Aspirin) 325 mg PO DAILY [facility] Last Admin: 10/06/16 08:37 Dose: 325 mg Atenolol (Tenormin) 50 mg PO Q12@0900,2100 [facility] Last Admin: 10/06/16 20:51 Dose: 50 mg Atorvastatin Calcium (Lipitor) 80 mg PO HS [facility] Last Admin: 10/06/16 21:01 Dose: 80 mg Calcium/Vitamin D (Oyster Shell Calcium/Vitamin D 500 Mg-200 Iu) 1 tab PO BIDWM [facility] Last Admin: 10/06/16 16:41 Dose: 1 tab Docusate Sodium (Colace) 100 mg PO BID [facility] Last Admin: 10/06/16 16:40 Dose: 100 mg Ergocalciferol (Drisdol 50,000 Intl Units Cap) 1 cap PO CATY [facility] Stop: 12/17/16 09:01 Last Admin: 10/01/16 08:52 Dose: 1 cap Guaifenesin (Robitussin) 100 mg PO Q4 PRN PRN Reason: Cough Last Admin: 09/28/16 20:29 Dose: 100 mg Insulin Human Lispro (Humalog) 0 units SC ACHS [facility] PRN Reason: Protocol Last Admin: 10/06/16 22:26 Dose: Not Given Lidocaine (Lidoderm) 1 ea TD DAILY [facility] Last Admin: 10/06/16 08:34 Dose: 1 ea Lisinopril (Zestril) 20 mg PO DAILY [facility] Last Admin: 10/06/16 08:32 Dose: 20 mg Metformin HCl (Glucophage) 500 mg PO BIDWM [facility] Last Admin: 10/06/16 16:40 Dose: 500 mg Nitroglycerin (Nitrostat Sl Tab) 0.4 mg SL Q5M PRN PRN Reason: Other Pantoprazole Sodium (Protonix Ec Tab) 40 mg PO DAILY@0700 [facility] Last Admin: 10/06/16 06:54 Dose: 40 mg - Labs Labs: 10/05/16 12:05 10/05/16 12:05 Assessment and Plan (1) Acute cerebrovascular accident (CVA) Assessment & Plan: Left sided Hemiplegia Fall, Left Flank Pain ASA/Lipitor Physiatry Consult Tylenol Fall Precaution Neurocheck Status: Acute Priority: High (2) Diabetes mellitus Assessment and Plan: with Novolog Coverage Status: Chronic Priority: Medium (3) Hypertension Assessment and Plan: Keep sbp about 50 and DB about 85 Status: Chronic Priority: Low (4) Fall Assessment and Plan: S/P Event Monitor insertion at [facility] Status: Acute
[2016-10-07] MEDS: Pantoprazole 40 mg EC Tab PO SCH (06:39)
[2016-10-07] MEDS: Insulin Lispro (humaLOG) 100 Units/ml Inj SC SCH (06:43)
[2016-10-07] MEDS: Lidocaine 5% Patch TD SCH (08:40)
[2016-10-07] MEDS: Calcium-Vit D 500 mg-200 Units Tab UD PO SCH ×2 (09:52→17:16)
--- NOTE | 2016-10-07 12:32 | PSY.TMCNF ---
Nursing - Vital Signs Vital Signs (Last 8 hours): Vital Signs 10/07/16 10/07/16 10/07/16 08:45 08:47 10:00 Temperature 97.4 F L Pulse Rate 60 60 60 Respiratory 21 Rate Blood Pressure 180/84 H 180/84 H 180/84 H O2 Sat by Pulse 99 Oximetry Pain: 4 - Medications/Other Issues Comment: Pt at moderate nutritional risk. Goals: 1. Consume 75-100% at mealtimes(met, continue). 2. Maintain good glycemic control:GLU:70mg/dl-180mg/ dl(partially met, continue). 3. Report regular BM at next nutrition rx according to pt individual BM rx. (met, continue). Follow-up due on 10/10/2016 - Bladder Management Bladder Pattern: Normal Voiding Method: Urinal - Bowel Management Bowel Pattern: Normal - Goals/Time Frame Comments: Pt was seen awake and alert sitting in his wheelchair in his room. Pt agreeable to participate in session. insole tack puller hand Deyanira Cervantes was present to translate on behalf of pt. Pt reported that he prefers congolese as he has trouble at times understanding central african. Pt was able to identify his leisure interests such as reading, listening to music, and enjoys playing dominoes. Pt stated that he assists taking care of his father at home. Pt also c/o shoulder pain and limited ROM. RN aware. Pt's mood was stable-positive during visit. Physical Therapy - Bed Mobility Bed Mobility: Supervision - Transfers Wheelchair to Mat: Verbal Cues, Contact Guard Sit to Stand: Verbal Cues, Contact Guard - Ambulation Level of Assistance: Verbal Cues, Contact Guard Distance (ft.): 100 Assistive Devices: N/A Orthoses: L DF wrap Comment: -100 feet x 4 trials on level surface with LLE DF wrap without device, FWB BLE, impaired reciprocal pattern. -pt requires continued VCs to improve base of support and to maintain LLE hip/knee flexion during swing. -patient reports he feels better with use of dorsiflexion wrap; PT continued to educate patient that warp can assist but patient needs to continue to utilize strength in LLE especially in stance for safety and control with gait - Stair Negotiation Stairs: Level of Assistance: Verbal Cues, Minimal Assistance, Moderate Assistance Stairs: Assistive Devices: Right Handrail Comment: 1 flight of 8 inch steps with R rail with min to mod A. -patient with very unsafe pattern on stairs as he appears to be apathetic towards progress with poor recall/carry-over of prior educated pattern. -requires cues to adhere to proper pattern and maintain safety - Standing Balance Static Stand: Contact Guard Assist Dynamic Stand: Minimal Assistance - Pain Management Techniques: Medication - Insight/Carryover Insight/Carryover: Fair - Patient/Family Education Comment: -patient: safety, therapy schedule, POC, importance of postural control and good sitting posture, therapy goals, rehabilitation process s/p CVA , anticipated needs for DC, active contraction. NOTE: Family training scheduled for 10/06/16 was cancelled last minute by sister due to family emergency. - Assessment/Plan Assessment: Pt participates in group and 1:1 recreation therapy sessions at times. Pt's participation is limited by fatigue and decrease arousal. Pt will receive more post CVA education to improve mood state and encouragement. - Goals Timeframe: 7 days Goals: 1 flight with single rail with CS. Transfers CS with SPC. Ambulate on level surface with CG with SPC x 250 feet. distant supervision with all bed/ mat mobility - Provider License Number: [id number] Occupational Therapy - Arousal/Attention/Orientation Patient Orientation: Person, Place, Time, Appropriate to Age, Appropriate to Situation - ADL/IADL Self Feeding: Supervision, Verbal Cues, Set-up Help Grooming: Supervision, Verbal Cues, Set-up Help Bathing-Upper Extremity: Moderate Assistance Bathing-Lower Extremity: Moderate Assistance Dressing-Upper Extremity: Moderate Assistance Dressing-Lower Extremity: Moderate Assistance - Sitting Balance Static Sitting: Supervision Dynamic Sitting: Contact Guard Assist - Transfers Wheelchair to Bed Transfers: Contact Guard, Minimal Assistance Toilet Transfers: Minimal Assistance Tub Transfers: Moderate Assistance - Upper Extremity Status Left Upper Extremity Comment: impaired with shoulder external rotation, retraction and flexion. PROM WFL except shldr flexion ~80* secondary to pain, shldr ER - Pain Alleviating Techniques: Medication - Insight/Carryover Insight/Carryover: Fair - Patient/Family Education Comment: -patient: safety, therapy schedule, POC, importance of postural control and good sitting posture, therapy goals, rehabilitation process s/p CVA , anticipated needs for DC, active contraction. NOTE: Family training scheduled for 10/06/16 was cancelled last minute by sister due to family emergency. - Assessment/Plan Assessment: Pt participates in group and 1:1 recreation therapy sessions at times. Pt's participation is limited by fatigue and decrease arousal. Pt will receive more post CVA education to improve mood state and encouragement. - Goals Timeframe: 7 days Goals: 1 flight with single rail with CS. Transfers CS with SPC. Ambulate on level surface with CG with SPC x 250 feet. distant supervision with all bed/ mat mobility - Provider Therapist: Jessica Gallegos Speech Therapy - Plan Assessment: Pt participates in group and 1:1 recreation therapy sessions at times. Pt's participation is limited by fatigue and decrease arousal. Pt will receive more post CVA education to improve mood state and encouragement. Recreational Therapy - Participation Participation: Participates in Individual and/or Group Sessions - Attendance Attendance: 3-5 times per week - Activities Leisure Activities: Cards and Games - Socialization Level of Socialization: Initiates/interacts freely with care givers and peer - Diversional Time Diversional Time: dominoes, likes to read - Assessment Assessment/Plan: Pt participates in group and 1:1 recreation therapy sessions at times. Pt's participation is limited by fatigue and decrease arousal. Pt will receive more post CVA education to improve mood state and encouragement. Problems Currently Limiting Participation: decrease leisure awareness level, L sided weakness Goals and Time Frame: Pt will be encouraged to participate in 1:1 and group recreation therapy sessions 3-5x week to improve leisure awareness level, arousal level, and improve L side weakness. - Provider Therapist: Mary Aguilar, [facility]ER #[id number] Nutrition - Current Diet Current Diet/ Supplement/ Feedings: Moderate consistent CHO heart healthy diet: 2 gram Na lactose retricted diet - Appetite Percent Meal Consumed: 75-100% - Assessment/Goals/Time Frame Assessment/Goals/Time Frame: Pt at moderate nutritional risk. Goals: 1. Consume 75-100% at mealtimes(met, continue). 2. Maintain good glycemic control: GLU:70mg/dl-180mg/dl(partially met, continue). 3. Report regular BM at next nutrition rx according to pt individual BM rx. (met, continue). Follow-up due on 10/10/2016 - Provider Provider: Lizeth Rahman RD Case Management - Psychosocial Assessment Support Systems: Patient lives with father on 1st floor, and sister and two nephews live on 3rd floor Psychological Interventions/Needs: Patient is alert and oriented x3 and able to verbalize needs. Patient is cooperative and motivated for therapy Discharge Concerns: Patient c/o L shoulder pain and with weakness on L UE limiting ability to perform ADLs. Patient/Family Meeting: CM met with patient and rehab team via certified Belarusian speaking tree marker Michelle Bridges Intervention/Goal/Outcome:: 1. Goal: Supervision overall. 2. Plan: Home vs [facility] dependant on progress and family support. 3. DME needs. 4. f/u appts. 5. caregiver training? 6. continued emotional support - Discharge Plan Discharge Plan: Home with services, Subacute care - Provider Provider: PRAFUL Alicea, [facility] License Number: [id number] Rehabilitation Plan - Treatment Plan Treatment Plan: Physical Therapy, Occupational Therapy - Recommendation Recommendation: Physical Therapy, Occupational Therapy, Dietary, Patient/Family Education - Discharge Plan Discharge to: Home (october 10)
--- NOTE | 2016-10-07 15:05 | CP.PCM.PN ---
Subjective - Date & Time of Evaluation Date of Evaluation: 10/07/16 Time of Evaluation: 11:00 - Subjective Subjective: patient with complaints of left shoulder discomfort at times rib discomfort Objective - Vital Signs/Intake and Output Vital Signs (last 24 hours): Temp Pulse Resp BP Pulse Ox 97.4 F L 60 21 180/84 H 99 10/07/16 10:00 10/07/16 10:00 10/07/16 10:00 10/07/16 10:00 10/07/16 10:00 - Medications Medications: Current Medications Acetaminophen (Tylenol 325mg Tab) 650 mg PO Q6 PRN PRN Reason: Headache Last Admin: 09/27/16 09:19 Dose: 650 mg Acetaminophen (Tylenol 325mg Tab) 650 mg PO Q6 PRN PRN Reason: Pain scale 4-10 Last Admin: 10/05/16 13:31 Dose: 650 mg Amlodipine Besylate (Norvasc) 5 mg PO DAILY [facility] Last Admin: 10/07/16 08:45 Dose: 5 mg Aspirin (Aspirin) 325 mg PO DAILY [facility] Last Admin: 10/07/16 08:44 Dose: 325 mg Atenolol (Tenormin) 50 mg PO Q12@0900,2100 [facility] Last Admin: 10/07/16 08:47 Dose: 50 mg Atorvastatin Calcium (Lipitor) 80 mg PO HS [facility] Last Admin: 10/06/16 21:01 Dose: 80 mg Calcium/Vitamin D (Oyster Shell Calcium/Vitamin D 500 Mg-200 Iu) 1 tab PO BIDWM [facility] Last Admin: 10/07/16 09:52 Dose: 1 tab Docusate Sodium (Colace) 100 mg PO BID [facility] Last Admin: 10/07/16 08:45 Dose: 100 mg Ergocalciferol (Drisdol 50,000 Intl Units Cap) 1 cap PO CATY [facility] Stop: 12/17/16 09:01 Last Admin: 10/01/16 08:52 Dose: 1 cap Guaifenesin (Robitussin) 100 mg PO Q4 PRN PRN Reason: Cough Last Admin: 09/28/16 20:29 Dose: 100 mg Insulin Human Lispro (Humalog) 0 units SC 0630 [facility] PRN Reason: Protocol Lidocaine (Lidoderm) 1 ea TD DAILY [facility] Last Admin: 10/07/16 08:40 Dose: 1 ea Lisinopril (Zestril) 20 mg PO DAILY [facility] Last Admin: 10/07/16 08:47 Dose: 20 mg Metformin HCl (Glucophage) 500 mg PO BIDWM [facility] Last Admin: 10/07/16 08:45 Dose: 500 mg Nitroglycerin (Nitrostat Sl Tab) 0.4 mg SL Q5M PRN PRN Reason: Other Pantoprazole Sodium (Protonix Ec Tab) 40 mg PO DAILY@0700 [facility] Last Admin: 10/07/16 06:39 Dose: 40 mg - Labs Labs: 10/05/16 12:05 10/05/16 12:05 - Head Exam Head Exam: ATRAUMATIC, NORMAL INSPECTION, NORMOCEPHALIC - Eye Exam Eye Exam: EOMI, Normal appearance, PERRL Pupil Exam: NORMAL ACCOMODATION - ENT Exam ENT Exam: Mucous Membranes Moist, Normal Exam - Respiratory Exam Respiratory Exam: NORMAL BREATHING PATTERN - Cardiovascular Exam Cardiovascular Exam: REGULAR RHYTHM - GI/Abdominal Exam GI & Abdominal Exam: Normal Bowel Sounds - Rectal Exam Rectal Exam: NORMAL INSPECTION - Exam External exam: NORMAL EXTERNAL EXAM - Extremities Exam Extremities Exam: Normal Capillary Refill - Back Exam Back Exam: NORMAL INSPECTION - Neurological Exam Neurological Exam: Alert, Awake Neuro motor strength exam: Left Upper Extremity: 3, Right Upper Extremity: 4, Left Lower Extremity: 3, Right Lower Extremity: 4 - Psychiatric Exam Psychiatric exam: Normal Affect, Normal Mood - Skin Skin Exam: Dry, Intact Assessment and Plan (1) Cerebrovascular accident Status: Acute - Assessment and Plan (Free Text) Assessment: consider tapping for the shoulder, will also do other modalitie, stretching, moist heat pending Ct of the shoulder Dc delayed to october 14 to achieve more goals
--- NOTE | 2016-10-07 17:20 | CT ---
PROCEDURE: Left shoulder CT HISTORY: LEFT SHOULDER PAIN. No antecedent history of trauma provided. COMPARISON: 09/28/2016. TECHNIQUE: 1.25 mm axial acquisition and display. Coronal and sagittal reconstructions. Radiation dosimetry DLP (mGy-cm) 244.83 FINDINGS: No significant osseous, articular or soft tissue abnormalities. Preserved glenohumeral relationship. Mild degenerative changes. Negative study for clavicular, scapular, humeral fracture. No abnormalities visualized thorax including limited assessment of ribs and pulmonary parenchyma Degenerative changes- confined to the glenohumeral relationship. IMPRESSION: No acute findings related to/accounting for the clinical presentation. Mild degenerative changes glenohumeral relationship.
--- NOTE | 2016-10-07 23:45 | CP.PCM.PN ---
Subjective - Date & Time of Evaluation Date of Evaluation: 10/07/16 Time of Evaluation: 10:00 - Subjective Subjective: Seen and Examined at the bed side. C/O Left shoulder pain 5/10 with Limitted ROM. H/O recent Fall at [facility] where he fell to the left hemiparesis center. S/P Loop Recorder at the same hospital. X-ray to the shoulder was negative for any fractures or dislocation. Objective - Vital Signs/Intake and Output Vital Signs (last 24 hours): Temp Pulse Resp BP Pulse Ox 97.9 F 63 20 163/78 H 95 10/07/16 21:03 10/07/16 21:49 10/07/16 21:03 10/07/16 21:49 10/07/16 21:03 - Medications Medications: Current Medications Acetaminophen (Tylenol 325mg Tab) 650 mg PO Q6 PRN PRN Reason: Headache Last Admin: 09/27/16 09:19 Dose: 650 mg Acetaminophen (Tylenol 325mg Tab) 650 mg PO Q6 PRN PRN Reason: Pain scale 4-10 Last Admin: 10/05/16 13:31 Dose: 650 mg Amlodipine Besylate (Norvasc) 5 mg PO DAILY [facility] Last Admin: 10/07/16 08:45 Dose: 5 mg Aspirin (Aspirin) 325 mg PO DAILY [facility] Last Admin: 10/07/16 08:44 Dose: 325 mg Atenolol (Tenormin) 50 mg PO Q12@0900,2100 [facility] Last Admin: 10/07/16 21:49 Dose: 50 mg Atorvastatin Calcium (Lipitor) 80 mg PO HS [facility] Last Admin: 10/07/16 21:51 Dose: 80 mg Calcium/Vitamin D (Oyster Shell Calcium/Vitamin D 500 Mg-200 Iu) 1 tab PO BIDWM [facility] Last Admin: 10/07/16 17:16 Dose: 1 tab Docusate Sodium (Colace) 100 mg PO BID [facility] Last Admin: 10/07/16 17:16 Dose: 100 mg Ergocalciferol (Drisdol 50,000 Intl Units Cap) 1 cap PO CATY [facility] Stop: 12/17/16 09:01 Last Admin: 10/01/16 08:52 Dose: 1 cap Guaifenesin (Robitussin) 100 mg PO Q4 PRN PRN Reason: Cough Last Admin: 09/28/16 20:29 Dose: 100 mg Insulin Human Lispro (Humalog) 0 units SC 0630 [facility] PRN Reason: Protocol Lidocaine (Lidoderm) 1 ea TD DAILY [facility] Last Admin: 10/07/16 08:40 Dose: 1 ea Lisinopril (Zestril) 20 mg PO DAILY [facility] Last Admin: 10/07/16 08:47 Dose: 20 mg Metformin HCl (Glucophage) 500 mg PO BIDWM [facility] Last Admin: 10/07/16 17:17 Dose: 500 mg Nitroglycerin (Nitrostat Sl Tab) 0.4 mg SL Q5M PRN PRN Reason: Other Pantoprazole Sodium (Protonix Ec Tab) 40 mg PO DAILY@0700 [facility] Last Admin: 10/07/16 06:39 Dose: 40 mg - Labs Labs: 10/05/16 12:05 10/05/16 12:05 - Constitutional Appears: Well, No Acute Distress - Head Exam Head Exam: ATRAUMATIC, NORMAL INSPECTION, NORMOCEPHALIC - Eye Exam Eye Exam: EOMI, Normal appearance, PERRL Pupil Exam: NORMAL ACCOMODATION, PERRL - ENT Exam ENT Exam: Mucous Membranes Moist, Normal Exam - Neck Exam Neck Exam: Full ROM, Normal Inspection. absent: Lymphadenopathy - Respiratory Exam Respiratory Exam: Clear to Ausculation Bilateral, NORMAL BREATHING PATTERN - Cardiovascular Exam Cardiovascular Exam: REGULAR RHYTHM, +S1, +S2. absent: Murmur - GI/Abdominal Exam GI & Abdominal Exam: Soft, Normal Bowel Sounds. absent: Tenderness - Extremities Exam Extremities Exam: Normal Capillary Refill, Normal Inspection, Tenderness (to the left Shoulder.). absent: Joint Swelling, Pedal Edema - Back Exam Back Exam: NORMAL INSPECTION - Neurological Exam Neurological Exam: Alert, Awake, CN II-XII Intact, Oriented x3 Neuro motor strength exam: Left Upper Extremity: 3, Right Upper Extremity: 5, Left Lower Extremity: 3, Right Lower Extremity: 5 - Psychiatric Exam Psychiatric exam: Normal Affect, Normal Mood - Skin Skin Exam: Dry, Intact, Normal Color, Warm Assessment and Plan (1) Acute cerebrovascular accident (CVA) Assessment & Plan: with Left hemiparesis Continue Current CAre PT/OT, and speech Status: Acute (2) Fall Assessment & Plan: Left shoulder pain, and Limitted ROM at the left shoulder Pain Medication Discussed with The Beauty Culturist Apprentice, and could be due to Sublaxation, and would stablize the Joint and do More therapy Cannot do MRI due to Event Monitor, and Will do CT f the Shoulder W/o Contrast Status: Acute (3) Diabetes mellitus Status: Chronic (4) Hypertension Status: Chronic
[2016-10-08] MEDS: Insulin Lispro (humaLOG) 100 Units/ml Inj SC SCH (06:45)
[2016-10-08] MEDS: Pantoprazole 40 mg EC Tab PO SCH (06:48)
[2016-10-08] MEDS: Lidocaine 5% Patch TD SCH (09:02)
[2016-10-08] MEDS: Ergocalciferol 50,000 Intl Units Cap PO SCH (09:02)
[2016-10-08] MEDS: Calcium-Vit D 500 mg-200 Units Tab UD PO SCH ×2 (09:03→17:51)
--- NOTE | 2016-10-08 20:47 | CP.PCM.PN ---
Subjective - Date & Time of Evaluation Date of Evaluation: 10/08/16 Time of Evaluation: 14:00 - Subjective Subjective: patient with some weakness no acute complaints Objective - Vital Signs/Intake and Output Vital Signs (last 24 hours): Temp Pulse Resp BP Pulse Ox 98.1 F 73 20 117/84 97 10/08/16 08:24 10/08/16 09:03 10/08/16 08:24 10/08/16 09:03 10/08/16 08:24 - Medications Medications: Current Medications Acetaminophen (Tylenol 325mg Tab) 650 mg PO Q6 PRN PRN Reason: Headache Last Admin: 09/27/16 09:19 Dose: 650 mg Acetaminophen (Tylenol 325mg Tab) 650 mg PO Q6 PRN PRN Reason: Pain scale 4-10 Last Admin: 10/05/16 13:31 Dose: 650 mg Amlodipine Besylate (Norvasc) 5 mg PO DAILY [facility] Last Admin: 10/08/16 09:02 Dose: Not Given Aspirin (Aspirin) 325 mg PO DAILY [facility] Last Admin: 10/08/16 09:01 Dose: 325 mg Atenolol (Tenormin) 50 mg PO Q12@0900,2100 [facility] Last Admin: 10/08/16 09:03 Dose: Not Given Atorvastatin Calcium (Lipitor) 80 mg PO HS [facility] Last Admin: 10/07/16 21:51 Dose: 80 mg Calcium/Vitamin D (Oyster Shell Calcium/Vitamin D 500 Mg-200 Iu) 1 tab PO BIDWM [facility] Last Admin: 10/08/16 17:51 Dose: 1 tab Docusate Sodium (Colace) 100 mg PO BID [facility] Last Admin: 10/08/16 17:50 Dose: 100 mg Ergocalciferol (Drisdol 50,000 Intl Units Cap) 1 cap PO CATY [facility] Stop: 12/17/16 09:01 Last Admin: 10/08/16 09:02 Dose: 1 cap Guaifenesin (Robitussin) 100 mg PO Q4 PRN PRN Reason: Cough Last Admin: 09/28/16 20:29 Dose: 100 mg Insulin Human Lispro (Humalog) 0 units SC 0630 [facility] PRN Reason: Protocol Last Admin: 10/08/16 06:45 Dose: Not Given Lidocaine (Lidoderm) 1 ea TD DAILY [facility] Last Admin: 10/08/16 09:02 Dose: 1 ea Lisinopril (Zestril) 20 mg PO DAILY [facility] Last Admin: 10/08/16 09:03 Dose: Not Given Metformin HCl (Glucophage) 500 mg PO BIDWM [facility] Last Admin: 10/08/16 17:50 Dose: Not Given Nitroglycerin (Nitrostat Sl Tab) 0.4 mg SL Q5M PRN PRN Reason: Other Pantoprazole Sodium (Protonix Ec Tab) 40 mg PO DAILY@0700 [facility] Last Admin: 10/08/16 06:48 Dose: 40 mg - Labs Labs: 10/05/16 12:05 10/05/16 12:05 - Head Exam Head Exam: ATRAUMATIC, NORMAL INSPECTION, NORMOCEPHALIC - Eye Exam Eye Exam: Normal appearance Pupil Exam: NORMAL ACCOMODATION - ENT Exam ENT Exam: Mucous Membranes Moist - Neck Exam Neck Exam: Normal Inspection - Respiratory Exam Respiratory Exam: NORMAL BREATHING PATTERN - Cardiovascular Exam Cardiovascular Exam: REGULAR RHYTHM - GI/Abdominal Exam GI & Abdominal Exam: Normal Bowel Sounds - Rectal Exam Rectal Exam: NORMAL INSPECTION - Exam External exam: NORMAL EXTERNAL EXAM - Extremities Exam Extremities Exam: Normal Inspection - Back Exam Back Exam: NORMAL INSPECTION - Neurological Exam Neurological Exam: Alert, Awake Neuro motor strength exam: Left Upper Extremity: 3, Right Upper Extremity: 3, Left Lower Extremity: 3, Right Lower Extremity: 3 - Psychiatric Exam Psychiatric exam: Normal Affect - Skin Skin Exam: Dry, Normal Color Assessment and Plan (1) Cerebrovascular accident Status: Acute - Assessment and Plan (Free Text) Assessment: plan for physical, occupational, rec therapy , continue with range of the of the shoulder improve strength and decrease pain
--- NOTE | 2016-10-09 00:49 | CP.PCM.PN ---
Subjective - Date & Time of Evaluation Date of Evaluation: 10/08/16 Time of Evaluation: 11:30 Objective - Vital Signs/Intake and Output Vital Signs (last 24 hours): Temp Pulse Resp BP Pulse Ox 96.9 F L 64 20 152/73 H 99 10/08/16 21:11 10/08/16 21:36 10/08/16 21:11 10/08/16 21:36 10/08/16 21:11 - Medications Medications: Current Medications Acetaminophen (Tylenol 325mg Tab) 650 mg PO Q6 PRN PRN Reason: Headache Last Admin: 09/27/16 09:19 Dose: 650 mg Acetaminophen (Tylenol 325mg Tab) 650 mg PO Q6 PRN PRN Reason: Pain scale 4-10 Last Admin: 10/05/16 13:31 Dose: 650 mg Amlodipine Besylate (Norvasc) 5 mg PO DAILY [facility] Last Admin: 10/08/16 09:02 Dose: Not Given Aspirin (Aspirin) 325 mg PO DAILY [facility] Last Admin: 10/08/16 09:01 Dose: 325 mg Atenolol (Tenormin) 50 mg PO Q12@0900,2100 [facility] Last Admin: 10/08/16 21:36 Dose: 50 mg Atorvastatin Calcium (Lipitor) 80 mg PO HS [facility] Last Admin: 10/08/16 21:35 Dose: 80 mg Calcium/Vitamin D (Oyster Shell Calcium/Vitamin D 500 Mg-200 Iu) 1 tab PO BIDWM [facility] Last Admin: 10/08/16 17:51 Dose: 1 tab Docusate Sodium (Colace) 100 mg PO BID [facility] Last Admin: 10/08/16 17:50 Dose: 100 mg Ergocalciferol (Drisdol 50,000 Intl Units Cap) 1 cap PO CATY [facility] Stop: 12/17/16 09:01 Last Admin: 10/08/16 09:02 Dose: 1 cap Guaifenesin (Robitussin) 100 mg PO Q4 PRN PRN Reason: Cough Last Admin: 09/28/16 20:29 Dose: 100 mg Insulin Human Lispro (Humalog) 0 units SC 0630 [facility] PRN Reason: Protocol Last Admin: 10/08/16 06:45 Dose: Not Given Lidocaine (Lidoderm) 1 ea TD DAILY [facility] Last Admin: 10/08/16 09:02 Dose: 1 ea Lisinopril (Zestril) 20 mg PO DAILY [facility] Last Admin: 10/08/16 09:03 Dose: Not Given Metformin HCl (Glucophage) 500 mg PO BIDWM [facility] Last Admin: 10/08/16 17:50 Dose: Not Given Nitroglycerin (Nitrostat Sl Tab) 0.4 mg SL Q5M PRN PRN Reason: Other Pantoprazole Sodium (Protonix Ec Tab) 40 mg PO DAILY@0700 [facility] Last Admin: 10/08/16 06:48 Dose: 40 mg - Labs Labs: 10/05/16 12:05 10/05/16 12:05 Assessment and Plan (1) Acute cerebrovascular accident (CVA) Assessment & Plan: Left sided Hemiplegia Fall, Left Flank Pain ASA/Lipitor Physiatry Consult Tylenol Fall Precaution Neurocheck Status: Acute Priority: High (2) Diabetes mellitus Assessment and Plan: with Novolog Coverage Status: Chronic Priority: Medium (3) Hypertension Assessment and Plan: Keep sbp about 50 and DB about 85 Status: Chronic Priority: Low (4) Fall Assessment and Plan: S/P Event Monitor insertion at [facility] Status: Acute
[2016-10-09] MEDS: Insulin Lispro (humaLOG) 100 Units/ml Inj SC SCH (06:03)
[2016-10-09] MEDS: Pantoprazole 40 mg EC Tab PO SCH (06:03)
[2016-10-09] MEDS: Lidocaine 5% Patch TD SCH (09:05)
[2016-10-09] MEDS: Calcium-Vit D 500 mg-200 Units Tab UD PO SCH ×3 (09:13→18:03)
[2016-10-09 14:42] VITALS: BMI 24.7
--- NOTE | 2016-10-09 23:47 | CP.PCM.PN ---
Subjective - Date & Time of Evaluation Date of Evaluation: 10/09/16 Time of Evaluation: 12:00 Objective - Vital Signs/Intake and Output Vital Signs (last 24 hours): Temp Pulse Resp BP Pulse Ox 97.7 F 63 18 154/71 H 100 10/09/16 21:04 10/09/16 21:04 10/09/16 21:04 10/09/16 21:04 10/09/16 21:04 - Medications Medications: Current Medications Acetaminophen (Tylenol 325mg Tab) 650 mg PO Q6 PRN PRN Reason: Headache Last Admin: 09/27/16 09:19 Dose: 650 mg Acetaminophen (Tylenol 325mg Tab) 650 mg PO Q6 PRN PRN Reason: Pain scale 4-10 Last Admin: 10/05/16 13:31 Dose: 650 mg Amlodipine Besylate (Norvasc) 5 mg PO DAILY [facility] Last Admin: 10/09/16 09:06 Dose: 5 mg Aspirin (Aspirin) 325 mg PO DAILY [facility] Last Admin: 10/09/16 09:10 Dose: 325 mg Atenolol (Tenormin) 50 mg PO Q12@0900,2100 [facility] Last Admin: 10/09/16 20:41 Dose: 50 mg Atorvastatin Calcium (Lipitor) 80 mg PO HS [facility] Last Admin: 10/09/16 21:47 Dose: 80 mg Calcium/Vitamin D (Oyster Shell Calcium/Vitamin D 500 Mg-200 Iu) 1 tab PO BIDWM [facility] Last Admin: 10/09/16 18:03 Dose: Not Given Docusate Sodium (Colace) 100 mg PO BID [facility] Last Admin: 10/09/16 18:04 Dose: Not Given Ergocalciferol (Drisdol 50,000 Intl Units Cap) 1 cap PO CATY [facility] Stop: 12/17/16 09:01 Last Admin: 10/08/16 09:02 Dose: 1 cap Guaifenesin (Robitussin) 100 mg PO Q4 PRN PRN Reason: Cough Last Admin: 09/28/16 20:29 Dose: 100 mg Insulin Human Lispro (Humalog) 0 units SC 0630 [facility] PRN Reason: Protocol Last Admin: 10/09/16 06:03 Dose: Not Given Lidocaine (Lidoderm) 1 ea TD DAILY [facility] Last Admin: 10/09/16 09:05 Dose: 1 ea Lisinopril (Zestril) 20 mg PO DAILY [facility] Last Admin: 10/09/16 09:08 Dose: 20 mg Nitroglycerin (Nitrostat Sl Tab) 0.4 mg SL Q5M PRN PRN Reason: Other Pantoprazole Sodium (Protonix Ec Tab) 40 mg PO DAILY@0700 [facility] Last Admin: 10/09/16 06:03 Dose: 40 mg - Labs Labs: 10/05/16 12:05 10/05/16 12:05 Assessment and Plan (1) Acute cerebrovascular accident (CVA) Assessment & Plan: Left sided Hemiplegia Fall, Left Flank Pain ASA/Lipitor Physiatry Consult Tylenol Fall Precaution Neurocheck Status: Acute Priority: High (2) Diabetes mellitus Assessment and Plan: with Novolog Coverage Status: Chronic Priority: Medium (3) Hypertension Assessment and Plan: Keep sbp about 50 and DB about 85 Status: Chronic Priority: Low (4) Fall Assessment and Plan: S/P Event Monitor insertion at [facility] Status: Acute
[2016-10-10] MEDS: Insulin Lispro (humaLOG) 100 Units/ml Inj SC SCH (06:36)
[2016-10-10] MEDS: Pantoprazole 40 mg EC Tab PO SCH (06:37)
[2016-10-10] MEDS: Lidocaine 5% Patch TD SCH (09:14)
[2016-10-10 09:20] VITALS: BP 135/73; PULSE 68
[2016-10-10] MEDS: Calcium-Vit D 500 mg-200 Units Tab UD PO SCH ×2 (09:20→09:21)
[2016-10-10 10:44] VITALS: RESP 20; TEMP 97.9; O2SAT 99
--- NOTE | 2016-10-10 15:51 | CP.PCM.DIS ---
Provider - Provider Date of Admission: 09/26/16 19:07 Attending physician: Renate Woods MD Time Spent in preparation of Discharge (in minutes): 30 Diagnosis - Discharge Diagnosis (1) Acute cerebrovascular accident (CVA) Status: Acute Priority: High (2) Fall Status: Acute (3) Diabetes mellitus Status: Chronic Priority: Medium (4) Hypertension Status: Chronic Priority: Low Hospital Course - Lab Results Lab Results: Most Recent Lab Values WBC 7.2 K/uL (4.8-10.8) 10/05/16 12:05 RBC 4.73 Mil/uL (4.40-5.90) 10/05/16 12:05 Hgb 13.5 g/dL (12.0-18.0) 10/05/16 12:05 Hct 40.2 % (35.0-51.0) 10/05/16 12:05 MCV 84.9 fl (80.0-94.0) 10/05/16 12:05 MCH 28.6 pg (27.0-31.0) 10/05/16 12:05 MCHC 33.7 g/dL (33.0-37.0) 10/05/16 12:05 RDW 12.8 % (11.5-14.5) 10/05/16 12:05 Plt Count 266 K/uL (130-400) 10/05/16 12:05 Sodium 139 mmol/l (132-148) 10/05/16 12:05 Potassium 4.3 MMOL/L (3.6-5.0) 10/05/16 12:05 Chloride 103 mmol/L (98-107) 10/05/16 12:05 Carbon Dioxide 21 mmol/L (22-30) L 10/05/16 12:05 Anion Gap 19 (10-20) 10/05/16 12:05 BUN 37 mg/dl (9-20) H 10/05/16 12:05 Creatinine 1.3 mg/dL (0.8-1.5) 10/05/16 12:05 Est GFR ( Amer) > 60 10/05/16 12:05 Est GFR (Non-Af Amer) 54 10/05/16 12:05 POC Glucose (mg/dL) 143 mg/dL (65-110) H 10/10/16 06:36 Random Glucose 196 mg/dL (75-110) H 10/05/16 12:05 Hemoglobin A1c 7.6 % (4.2-6.5) H 10/02/16 07:43 Calcium 9.6 mg/dL (8.4-10.2) 10/05/16 12:05 Total Bilirubin 1.0 mg/dl (0.2-1.3) 10/05/16 12:05 AST 29 U/L (17-59) 10/05/16 12:05 ALT 33 U/L (21-72) 10/05/16 12:05 Alkaline Phosphatase 97 U/L (38-126) 10/05/16 12:05 Total Protein 8.1 G/DL (6.3-8.2) 10/05/16 12:05 Albumin 4.2 g/dL (3.5-5.0) 10/05/16 12:05 Globulin 3.9 gm/dL (2.2-3.9) 10/05/16 12:05 Albumin/Globulin Ratio 1.1 (1.0-2.1) 10/05/16 12:05 25-OH Vitamin D Total 17.9 NG/ML (30.0-100.0) L 09/29/16 05:35 Discharge Exam - Head Exam Head Exam: ATRAUMATIC, NORMAL INSPECTION, NORMOCEPHALIC - Eye Exam Eye Exam: EOMI, Normal appearance, PERRL Pupil Exam: NORMAL ACCOMODATION, PERRL - GI/Abdominal Exam GI & Abdominal Exam: Normal Bowel Sounds - Rectal Exam Rectal Exam: NORMAL INSPECTION - Exam Exam: Circumcision, NORMAL INSPECTION External exam: NORMAL EXTERNAL EXAM Speculum exam: NORMAL SPECULUM EXAM Bimanual exam: NORMAL BIMANUAL EXAM - Neurological Exam Neurological exam: Alert, CN II-XII Intact, Normal Gait, Oriented x3, Reflexes Normal - Psychiatric Exam Psychiatric exam: Normal Affect, Normal Mood - Skin Skin Exam: Dry, Intact, Normal Color, Warm Discharge Plan - Follow Up Plan Condition: GOOD Disposition: TRANSF TO SNF Instructions: Cardiac Loop Recorder Insertion (DC), Hypertension (DC), Hypertension (GEN)
[2016-10-10] MEDS ORDERED: GlipiZIDE 5 mg SR Tab PO SCH (17:00)
--- NOTE | 2016-11-06 12:52 | DS ---
A 76-year-old male discharged on 10/10 to [facility] via stretcher. The patient for further subacute treatment at that facility. The patient did well during the rehab stay. In terms o f occupational discharge therapy strength left side 3, right side 4. ADLs, meal prep min assist depe ndent. Self-feeding set up, toileting supervision. Upper dressing supervision, lower body dependent . Functional mobility, supervision. Rolling transfers supervision right to the left. Functional mo bility independent. The patient to further work on transfers as well at the subacute facility. The patient is awake, alert. Range of motion within functional limits. Mobility, transfers, rolling to the right and left supervision. Transfers contact guard. Requires contact guard for pivot. Bal ance supervision. Static contact guard min assist in rolling. Ambulation 150 feet with a rolling wa lker. Rolling walker, supervision, verbal cues to contact guard, 150 feet on level surfaces with rol ling walker with left modified ankle foot orthosis. Impaired reciprocal pattern. Verbal cues for up right stance and to separate feet, demonstrates crossover pattern of feet with turning towards right. One flight 18 steps with right rail with contact guard to close supervision with left moped molded trial ankle foot orthoses in place. Further evaluation of the brace. Further physical and occupati onal therapy and medical treatment at the subacute facility. The patient initially admitted to acute rehab on 09/26, discharged to subacute on 10/10 at [facility]. Clifford Gonsales MD cc: [phone] TT: 11/06/2016 12:51:52 md
== END 2016-10-10 13:21 | DRG 57 ==
PROVIDERS: ADMIT Internal Medicine; ATTEND Internal Medicine
PROC: F08Z4ZZ Home Management Treatment (ICD-10-PCS; principal; 2016-09-26)
PROC: F07Z9ZZ Gait Training/Functional Ambulation Treatment (ICD-10-PCS; 2016-09-26)
PROC: F07L6ZZ Therapeutic Exercise Treatment of Musculoskeletal System - Lower Back / Lower Extremity (ICD-10-PCS; 2016-09-26)
DX: I69.354 Hemiplegia and hemiparesis following cerebral infarction affecting left non-dominant side (principal); E11.9 Type 2 diabetes mellitus without complications; I69.328 Other speech and language deficits following cerebral infarction; I10 Essential (primary) hypertension; E78.00 Pure hypercholesterolemia, unspecified; R10.9 Unspecified abdominal pain; L60.9 Nail disorder, unspecified